=== PATIENT | female | born 1980 | race Caucasian/White ===

== ENCOUNTER → 2016-08-17 | Outpatient (REF) | payer OTHER ==
[~2016-08-17] MED LIST: /ALBU4TAB INH; /MOXI40TA PO; CARA1TAB2 PO; DEXI60CA PO; EXCETAB80 PO; INSULANT SC; INSULIN PUMP; MICR10CA PO; REGL10TA6 PO; SLIDING SCALE SQ; TYLE325T5 PO; VENTAER IN
== END | disposition home or self-care (01) ==
LOC: M SFHCCLAY 14:53
PROVIDERS: ATTEND Family Medicine
DX: R30.0 Dysuria (principal)

== ENCOUNTER → 2016-09-22 | Outpatient (REF) | payer OTHER ==
[2016-09-22 17:18] LABS: MEAN CORPUSCULAR HEMOGLOBIN 29.1 pg (27.0-33.0); MEAN CORPUSCULAR HGB CONC 32.2 g/dl (32.0-36.5); MEAN CORPUSCULAR VOLUME 90.6 fl (80.0-96.0); RED CELL DISTRIBUTION WIDTH 12.5 % (11.5-14.5); WHITE BLOOD COUNT 10.4 K/mm3 (4.0-10.0)
[2016-09-22 17:57] LABS: EOSINOPHILS 1 % (0-5)
== END ==
LOC: M SFHCCLAY 11:46
PROVIDERS: ATTEND Family Medicine
DX: D72.829 Elevated white blood cell count, unspecified (principal)

== ENCOUNTER → 2017-01-30 | Outpatient (REF) | payer OTHER ==
[2017-01-30 18:46] LABS: ANION GAP 6 MEQ/L (8-16); BLOOD UREA NITROGEN 10 MG/DL (7-18); CARBON DIOXIDE LEVEL 29 MEQ/L (21-32); CHLORIDE LEVEL 103 MEQ/L (98-107); CREATININE FOR GFR 0.94 MG/DL (0.55-1.02); FERRITIN 23 NG/ML (8-252); FREE T4 0.87 NG/DL (0.76-1.46); GLOMERULAR FILTRATION RATE > 60.0 (>60); GLUCOSE, FASTING 231 MG/DL (70-105); POTASSIUM SERUM 4.4 MEQ/L (3.5-5.1); SODIUM LEVEL 138 MEQ/L (136-145)
[2017-01-30 19:47] LABS: MEAN CORPUSCULAR HEMOGLOBIN 30.8 pg (27.0-33.0); MEAN CORPUSCULAR HGB CONC 32.4 g/dl (32.0-36.5); MEAN CORPUSCULAR VOLUME 95.1 fl (80.0-96.0); RED CELL DISTRIBUTION WIDTH 13.3 % (11.5-14.5)
[2017-01-30 22:02] LABS: EOSINOPHILS 2 % (0-5)
== END ==
LOC: M SFHCCLAY 11:56
PROVIDERS: ATTEND Family Medicine
DX: D72.829 Elevated white blood cell count, unspecified (principal); R23.2 Flushing

== ENCOUNTER → 2017-05-31 | Outpatient (REF) | payer OTHER ==
[2017-05-31 17:42] LABS: ALBUMIN 3.7 GM/DL (3.2-5.2); ALBUMIN/GLOBULIN RATIO 1.19 (1.00-1.93); ALKALINE PHOSPHATASE 75 U/L (45-117); ALT/SGPT 15 U/L (12-78); ANION GAP 7 MEQ/L (8-16); AST/SGOT 13 U/L (7-37); BILIRUBIN,TOTAL 0.4 MG/DL (0.2-1.0); BLOOD UREA NITROGEN 8 MG/DL (7-18); CALCIUM LEVEL 8.9 MG/DL (8.5-10.1); CARBON DIOXIDE LEVEL 27 MEQ/L (21-32); CHLORIDE LEVEL 104 MEQ/L (98-107); CREATININE FOR GFR 0.88 MG/DL (0.55-1.02); GLOMERULAR FILTRATION RATE > 60.0 (>60); GLUCOSE, FASTING 237 MG/DL (70-105); MAGNESIUM LEVEL 1.8 MG/DL (1.8-2.4); POTASSIUM SERUM 4.5 MEQ/L (3.5-5.1); SODIUM LEVEL 138 MEQ/L (136-145); TOTAL PROTEIN 6.8 GM/DL (6.4-8.2)
[2017-05-31 18:30] LABS: BASO % 0.4 % (0.0-1.0); EOS # 0.1 10^3/uL (0.0-0.50); EOS % 0.5 % (0.0-3.0); IMMATURE GRANULOCYTE % 0.4 % (0-0); LYMPH # 2.9 10^3/uL (1.5-4.5); LYMPH % 25.9 % (24.0-44.0); MEAN CORPUSCULAR HEMOGLOBIN 29.1 pg (27.0-33.0); MEAN CORPUSCULAR HGB CONC 32.5 g/dl (32.0-36.5); MEAN CORPUSCULAR VOLUME 89.6 fl (80.0-96.0); MONO # 0.9 10^3/uL (0.0-0.8); MONO % 8.4 % (0.0-5.0); NEUTROPHILS # 7.2 10^3/uL (1.8-7.7); NEUTROPHILS % 64.4 % (36.0-66.0); PLATELET COUNT, AUTOMATED 245 10^3/uL (150-450); RED CELL DISTRIBUTION WIDTH 12.8 % (11.5-14.5); WHITE BLOOD COUNT 11.2 10^3/uL (4.0-10.0)
== END ==
LOC: M SFHCCLAY 10:49
PROVIDERS: ATTEND Nurse Practitioner Family
DX: E87.6 Hypokalemia (principal); E83.42 Hypomagnesemia; R11.10 Vomiting, unspecified; K31.84 Gastroparesis

== ENCOUNTER 2018-01-01 09:28 | Observation (INO) | payer OTHER ==
[2018-01-01 10:19] LABS: BASO # 0.1 10^3/uL (0.0-0.2); BASO % 0.4 % (0.0-1.0); EOS # 0.3 10^3/uL (0.0-0.50); EOS % 1.9 % (0.0-3.0); HEMATOCRIT 45.8 % (36.0-47.0); HEMOGLOBIN 15.6 g/dl (12.0-15.5); IMMATURE GRANULOCYTE % 0.6 % (0-3.0); LYMPH # 2.8 10^3/uL (1.5-4.5); LYMPH % 15.9 % (24.0-44.0); MEAN CORPUSCULAR HEMOGLOBIN 29.4 pg (27.0-33.0); MEAN CORPUSCULAR HGB CONC 34.1 g/dl (32.0-36.5); MEAN CORPUSCULAR VOLUME 86.4 fl (80.0-96.0); MONO # 1.3 10^3/uL (0.0-0.8); MONO % 7.4 % (0.0-5.0); NEUTROPHILS # 13.1 10^3/uL (1.8-7.7); NEUTROPHILS % 73.8 % (36.0-66.0); PLATELET COUNT, AUTOMATED 300 10^3/uL (150-450); RED CELL DISTRIBUTION WIDTH 12.7 % (11.5-14.5); WHITE BLOOD COUNT 17.8 10^3/uL (4.0-10.0)
[2018-01-01 10:30] LABS: ALBUMIN 3.6 GM/DL (3.2-5.2); ALKALINE PHOSPHATASE 79 U/L (45-117); ALT/SGPT 26 U/L (12-78); ANION GAP 11 MEQ/L (8-16); AST/SGOT 26 U/L (7-37); BILIRUBIN,DIRECT < 0.1 MG/DL (0.0-0.2); BILIRUBIN,TOTAL 0.5 MG/DL (0.2-1.0); BLOOD UREA NITROGEN 10 MG/DL (7-18); CALCIUM LEVEL 9.1 MG/DL (8.5-10.1); CARBON DIOXIDE LEVEL 24 MEQ/L (21-32); CHLORIDE LEVEL 101 MEQ/L (98-107); CREATININE FOR GFR 1.25 MG/DL (0.55-1.30); GLOMERULAR FILTRATION RATE 51.3 (>60); GLUCOSE, FASTING 302 MG/DL (70-100); LIPASE 88 U/L (73-393); POTASSIUM SERUM 3.6 MEQ/L (3.5-5.1); SODIUM LEVEL 136 MEQ/L (136-145); TOTAL PROTEIN 7.6 GM/DL (6.4-8.2)
[2018-01-01] MEDS ORDERED: ONDANSETRON 4MG/2ML VIAL (J2405) As Ordered (10:37)
[2018-01-01] MEDS: ONDANSETRON 4MG/2ML VIAL (J2405) IV (10:46)
[2018-01-01] MEDS ORDERED: ISOVUE-370 76% 100ML VIAL (Q9967) As Ordered (11:38)
[2018-01-01 11:44] LABS: CONTROL LINE HCG INT CTR LINE PRESENT; HCG, SERUM QUALITATIVE NEGATIVE (NEGATIVE)
[2018-01-01 11:47] LABS: MAGNESIUM LEVEL 1.8 MG/DL (1.8-2.4)
[2018-01-01] MEDS: PROMETHAZINE INJ 25 MG/ML VIAL (J2550) IM (12:04)
[2018-01-01] MEDS: NS 1,000 ML IV (12:04)
[2018-01-01 14:56] LABS: ESTIMATED AVERAGE GLUCOSE 166 MG/DL (60-110); HEMOGLOBIN A1c 7.4 %
[2018-01-01] MEDS ORDERED: DEXTROSE 50% 50 ML SYRINGE IV (15:30)
[2018-01-01] MEDS ORDERED: GLUCAGON FOR INJ 1 MG VIAL (J1610) SC (15:30)
[2018-01-01] MEDS ORDERED: GLUCOSE 4 GM CHEW TABLET PO (15:30)
[2018-01-01] MEDS: LR 1,000 ML IV (16:14)
[2018-01-01 16:27] LABS: KETONE, URINE AUTO RFX NEGATIVE (NEGATIVE); LEUKOCYTE ESTERASE UR AUTO RFX TRACE (NEGATIVE); NITRITE, URINE AUTO RFX NEGATIVE (NEGATIVE); RBC, URINE AUTO RFX 2 /HPF (0-3); SQUAM EPITHELIAL CELL UR AURFX 2 /HPF (0-6); WBC, URINE AUTO RFX 1 /HPF (0-3)
[2018-01-01 16:29] LABS: SPECIFIC GRAVITY UR AUTO RFX 1.064 (1.002-1.035)
[2018-01-01] MEDS: HumaLOG INSULIN (NovoLOG) PER UNIT SC (17:21)
[2018-01-01] MEDS: cefTRIAXone SOD 1 GM in D5W MINI-BAG PLUS 50 ML IV (18:00)
[2018-01-01 18:08] LABS: BEDSIDE GLUCOSE 63 MG/DL (70-105)
[2018-01-01] MEDS: METOCLOPRAMIDE INJ 10MG/2ML VIAL (J2765) IV (19:20)
[2018-01-01] MEDS ORDERED: ALBUTEROL 90 MCG/ACT 8GM HFA INHALER INH (19:45)
[2018-01-01] MEDS: ACETAMINOPHEN 500 MG TAB PO (20:47)
[2018-01-01] MEDS: FAMOTIDINE 20 MG TAB PO (20:54)
[2018-01-01] MEDS: LISINOPRIL *2.5 MG* TAB PO (20:54)
[2018-01-01] MEDS: CIPROFLOXACIN 400 MG in APPROPRIATE DILUENT 1 EA IV (20:54)
[2018-01-01] MEDS: busPIRone 10 MG TAB PO (20:55)
[2018-01-01] MEDS: SERTRALINE HCL 50 MG TAB PO (20:55)
[2018-01-01] MEDS: hydroCHLOROthiazide 25 MG TAB PO (20:56)
[2018-01-01] MEDS: metroNIDAZOLE 500 MG in APPROPRIATE DILUENT 1 EA IV (22:12)
[2018-01-01 23:53] LABS: BEDSIDE GLUCOSE 238 MG/DL (70-105)
[2018-01-02] MEDS: LR 1,000 ML IV ×4 (03:25→19:46)
[2018-01-02] MEDS: metroNIDAZOLE 500 MG in APPROPRIATE DILUENT 1 EA IV ×3 (04:54→23:33)
[2018-01-02] MEDS: LISINOPRIL *2.5 MG* TAB PO (08:18)
[2018-01-02] MEDS: FAMOTIDINE 20 MG TAB PO ×2 (08:19→21:42)
[2018-01-02] MEDS: CIPROFLOXACIN 400 MG in APPROPRIATE DILUENT 1 EA IV ×2 (08:19→19:46)
[2018-01-02] MEDS: SERTRALINE HCL 50 MG TAB PO (08:19)
[2018-01-02] MEDS: busPIRone 10 MG TAB PO (08:19)
[2018-01-02] MEDS: ENOXAPARIN 40 MG/0.4 ML SYRINGE (J1650) SC (08:19)
[2018-01-02 09:35] LABS: ESTIMATED AVERAGE GLUCOSE 169 MG/DL (60-110); HEMOGLOBIN A1c 7.5 %
[2018-01-02] MEDS: hydroCHLOROthiazide 25 MG TAB PO (09:56)
[2018-01-02] MEDS: ONDANSETRON 4MG/2ML VIAL (J2405) IV (19:45)
[2018-01-02 20:03] LABS: BEDSIDE GLUCOSE 69 MG/DL (70-105)
[2018-01-03] MEDS: metroNIDAZOLE 500 MG in APPROPRIATE DILUENT 1 EA IV (05:13)
[2018-01-03 06:44] LABS: MEAN CORPUSCULAR HEMOGLOBIN 30.1 pg (27.0-33.0); MEAN CORPUSCULAR HGB CONC 34.6 g/dl (32.0-36.5); MEAN CORPUSCULAR VOLUME 86.9 fl (80.0-96.0); PLATELET COUNT, AUTOMATED 253 10^3/uL (150-450); RED BLOOD COUNT 4.49 10^6/uL (4.00-5.40); RED CELL DISTRIBUTION WIDTH 12.7 % (11.5-14.5); WHITE BLOOD COUNT 11.4 10^3/uL (4.0-10.0)
[2018-01-03 06:48] LABS: HEMOGLOBIN 13.5 g/dl (12.0-15.5)
[2018-01-03 07:18] LABS: ALBUMIN 2.9 GM/DL (3.2-5.2); ANION GAP 9 MEQ/L (8-16); BLOOD UREA NITROGEN 8 MG/DL (7-18); CALCIUM LEVEL 8.1 MG/DL (8.5-10.1); CARBON DIOXIDE LEVEL 25 MEQ/L (21-32); CHLORIDE LEVEL 108 MEQ/L (98-107); CREATININE FOR GFR 0.86 MG/DL (0.55-1.30); GLOMERULAR FILTRATION RATE > 60.0 (>60); GLUCOSE, FASTING 52 MG/DL (70-100); PHOSPHORUS LEVEL 3.4 MG/DL (2.5-4.9); POTASSIUM SERUM 3.2 MEQ/L (3.5-5.1); SODIUM LEVEL 142 MEQ/L (136-145)
[2018-01-03] MEDS: LR 1,000 ML IV (07:19)
[2018-01-03] MEDS: ACETAMINOPHEN 500 MG TAB PO (08:24)
[2018-01-03] MEDS: CIPROFLOXACIN 400 MG in APPROPRIATE DILUENT 1 EA IV (08:24)
[2018-01-03] MEDS: LISINOPRIL *2.5 MG* TAB PO (08:24)
[2018-01-03] MEDS: busPIRone 10 MG TAB PO (08:25)
[2018-01-03] MEDS: hydroCHLOROthiazide 25 MG TAB PO ×2 (08:25→08:31)
[2018-01-03] MEDS: FAMOTIDINE 20 MG TAB PO (08:25)
[2018-01-03] MEDS: SERTRALINE HCL 50 MG TAB PO (08:25)
[2018-01-03] MEDS: POTASSIUM CHLORIDE 10 MEQ SR TABLET PO (08:25)
[2018-01-03] MEDS: ENOXAPARIN 40 MG/0.4 ML SYRINGE (J1650) SC (08:26)
[2018-01-03 08:42] LABS: BEDSIDE GLUCOSE 113 MG/DL (70-105)
== END 2018-01-03 12:09 | disposition home or self-care (01) ==
LOC: M MS4PR 01-03 00:28 → M ED 09:28 → M ED INP 15:19
DX: R10.32 Left lower quadrant pain (principal); K52.89 Other specified noninfective gastroenteritis and colitis; G43.A1 Cyclical vomiting, in migraine, intractable; K31.84 Gastroparesis; T40.7X1A Poisoning by cannabis (derivatives), accidental (unintentional), initial encounter; E10.9 Type 1 diabetes mellitus without complications; Z79.4 Long term (current) use of insulin; Z96.41 Presence of insulin pump (external) (internal); K21.9 Gastro-esophageal reflux disease without esophagitis; D72.829 Elevated white blood cell count, unspecified; I10 Essential (primary) hypertension; J45.909 Unspecified asthma, uncomplicated; Z79.899 Other long term (current) drug therapy; Z88.0 Allergy status to penicillin; Z88.2 Allergy status to sulfonamides; Z91.040 Latex allergy status; Z88.5 Allergy status to narcotic agent
CPT/HCPCS: J2405

== ENCOUNTER 2018-01-11 12:49 | Day surgery (SDC) | payer OTHER ==
[2018-01-11 13:18] LABS: BEDSIDE GLUCOSE 102 MG/DL (70-105)
[2018-01-11] MEDS ORDERED: ONDANSETRON 4MG/2ML VIAL (J2405) As Ordered (13:39)
[2018-01-11] MEDS: ONDANSETRON 4MG/2ML VIAL (J2405) IV (13:44)
[2018-01-11] MEDS ORDERED: fentaNYL 100 MCG/2 ML INJECTION (J3010) As Ordered (14:14)
[2018-01-11] MEDS ORDERED: PROPOFOL 200 MG/20 ML VIAL As Ordered (14:27)
[2018-01-11] MEDS ORDERED: LIDOCAINE 2% INJ 100 MG/5 ML SDV (FOR ANES.) As Ordered (14:27)
[2018-01-11] MEDS: NS 1,000 ML IV (14:48)
== END 2018-01-11 15:13 | disposition home or self-care (01) ==
LOC: M OPP 12:49
DX: R11.2 Nausea with vomiting, unspecified (principal); R10.13 Epigastric pain; R12 Heartburn; K31.84 Gastroparesis; E10.9 Type 1 diabetes mellitus without complications; Z96.41 Presence of insulin pump (external) (internal); K21.9 Gastro-esophageal reflux disease without esophagitis; M08.00 Unspecified juvenile rheumatoid arthritis of unspecified site; R51 Headache; J45.909 Unspecified asthma, uncomplicated; F12.10 Cannabis abuse, uncomplicated; F32.9 Major depressive disorder, single episode, unspecified; F41.9 Anxiety disorder, unspecified; Z88.1 Allergy status to other antibiotic agents; Z91.040 Latex allergy status; Z88.5 Allergy status to narcotic agent; Z88.2 Allergy status to sulfonamides; Z88.0 Allergy status to penicillin; Z79.899 Other long term (current) drug therapy
CPT/HCPCS: 43239

== ENCOUNTER → 2018-09-12 | Outpatient (CLI) | payer OTHER ==
[~2018-09-12] MED LIST changes: +ANAS0.12 PO; +BUSP10TA PO; +CIPR-249 PO; +DEXI60CA2 PO; +FLAG250T PO; +FLAG500T PO; +HYDR25TAB PO; +INSUH10VL SC; +LISI2.5T5 PO; +MAGN250T11 PO; +ONDA4TAB5 PO; +RANI150T PO; +REGL5TAB2 PO; +SERT-155 PO; +SUCR1TAB56 PO; +VENTAER INH; +[UNRECOGNIZED DRUG - CODE] PO
== END ==
LOC: M RAD 10:01
PROVIDERS: ATTEND Nurse Practitioner Family
DX: M54.2 Cervicalgia (principal); M54.81 Occipital neuralgia; Z53.9 Procedure and treatment not carried out, unspecified reason

== ENCOUNTER → 2020-03-19 | Outpatient (CLI) | payer OTHER ==
[~2020-03-19] MED LIST changes: -/ALBU4TAB INH; -/MOXI40TA PO; +ALBU1TAB2 INH; +AVEL1TAB2 PO; +GASTROGRAFIN SOLUTION 30ML (Q9963) As Ordered ONE; +ISOVUE-370 76% 100ML VIAL As Ordered ONE; +LISI2.5T2 PO; -LISI2.5T5 PO; +ONDA-83 PO; -ONDA4TAB5 PO; -SERT-155 PO; +SERT50TA29 PO
--- NOTE | 2020-04-14 13:43 | REP ---
CONTRAST ENHANCED CT ABDOMEN AND PELVIS CLINICAL: Abdominal pain and history of abnormal finding on digestive tract imaging. TECHNIQUE: Axial contrast enhanced images from the lung bases to the pubic symphysis using oral (per protocol) and 100 mL Isovue-370 intravenous contrast material with coronal and sagittal reformations. COMPARISON: 01/01/2018. FINDINGS: Lung bases are clear. Visualized portions of the heart and pericardium normal. Liver, spleen, pancreas, bilateral adrenal glands, and kidneys are normal. Evidence for prior cholecystectomy noted. The enteric system is without obstruction or acute inflammatory process. Pelvis demonstrates normal bladder and age appropriate uterus/adnexa. No ascites. No free air. No adenopathy. Surrounding musculoskeletal structures appear intact. Abdominal aorta without aneurysm or dissection. IMPRESSION: Evidence for prior cholecystectomy. No acute abdominopelvic pathology appreciated. MTDD
== END ==
LOC: M RAD 14:24
PROVIDERS: ATTEND Physician Assistant Medical
DX: R93.3 Abnormal findings on diagnostic imaging of other parts of digestive tract (principal); R19.4 Change in bowel habit; Z90.49 Acquired absence of other specified parts of digestive tract
CPT/HCPCS: 74177; Q9963; Q9967

== ENCOUNTER → 2020-05-01 | Outpatient (CLI) | payer OTHER ==
[~2020-05-01] MED LIST changes: -GASTROGRAFIN SOLUTION 30ML (Q9963) As Ordered ONE; -ISOVUE-370 76% 100ML VIAL As Ordered ONE
--- NOTE | 2020-05-01 10:30 | REP ---
INDICATION: INCONTINENCE, LUMBAGO AND HIP PAIN RT COMPARISON: Comparison is made with images from CT scanning of the abdomen and pelvis March 19, 2020.. TECHNIQUE: Coronal T1 and fat-sat T2 images of both hips are acquired. In addition at smaller [id number] high-resolution T2 fat sat images of the right hip were acquired in all 3 planes. FINDINGS: Cortical and medullary bone signal intensity are normal in the proximal femurs bilaterally. There is no evidence to suggest avascular necrosis. There is no significant hip joint effusion on either side. T2 weighted scans show no evidence of peritrochanteric or other periarticular bursal fluid collection. There is no evidence of uterine or ovarian pathology. No pelvic mass or adenopathy is seen. Urinary bladder haq are smooth. Cortical and medullary bone signal intensity are normal in the visualized bony pelvic ring. There is no evidence of labral cartilage tear. Head neck junction morphology is normal in the right proximal femur. No subcortical cyst formation is seen on either side of the right hip articulation. Ligamentum teres appears intact. Periarticular soft tissues are unremarkable. IMPRESSION: Negative MRI study of the right hip. <Electronically signed by Valentín Alanis > 05/01/20 [id number]
--- NOTE | 2020-05-01 10:46 | REPVR ---
PROCEDURE INFORMATION: Exam: MR Lumbar Spine Without Contrast. Exam date and time: 05/01/2020 10:03 AM Age: 39 years old Clinical indication: Patient HX: Low back pain down into RT hip, nki, urinary retention; Additional info: Incontinence, lumbago and hip pain RT TECHNIQUE: Imaging protocol: Multiplanar magnetic resonance images of the lumbar spine without intravenous contrast. COMPARISON: No relevant prior studies available. FINDINGS: Vertebrae: Vertebral body heights are intact. Alignment is maintained. No pars defect is identified. Spinal cord: The conus is unremarkable in appearance, with its tip at the L1-L2 level. Multilevel findings: There are mild degrees of disc desiccation indicating intervertebral disc degeneration. L1-L2: No significant disc displacement. L2-L3: No significant disc displacement. L3-L4: No significant disc displacement. There is small fluid in the facet joints. L4-L5: Small bulge combining with facet arthrosis to lead to very mild bilateral neural foraminal narrowing without significant spinal stenosis. There is small fluid in the facet joints. L5-S1: Small bulge combining with facet arthrosis to lead to mild to moderate right and mild left neural foraminal narrowing without significant spinal stenosis. Soft tissues: Unremarkable. IMPRESSION: Mild multilevel disc desiccation indicating intervertebral disk degeneration with small disc displacements as described. COMMENTS: If surgery is considered, recommend level confirmation. Electronically signed by: Miki Hampton On 05/01/2020 10:46:33 AM
== END ==
LOC: M RAD 08:40
PROVIDERS: ATTEND Nurse Practitioner Family
DX: R32 Unspecified urinary incontinence (principal); M54.41 Lumbago with sciatica, right side; M51.26 Other intervertebral disc displacement, lumbar region

== ENCOUNTER → 2020-09-10 | Outpatient (CLI) | payer OTHER ==
[~2020-09-10] MED LIST changes: +HYDR-3490 PO; -HYDR25TAB PO
== END ==
LOC: M LABSMTC 11:47
PROVIDERS: ATTEND Family Medicine
DX: Z11.52 Encounter for screening for COVID-19 (principal)
CPT/HCPCS: C9803; U0003

== ENCOUNTER → 2020-09-20 | Outpatient (CLI) | payer OTHER ==
[~2020-09-20] MED LIST changes: +ADME100I SC; +FAMO20TA PO; +GABA-845 PO; +HYDR-643 PO; +LANTINJ4 SC; +LEXA1TAB2 PO; +PROP10TA56 PO
== END ==
LOC: M LABSMTC 09:26
PROVIDERS: ATTEND Anesthesiology
DX: Z01.812 Encounter for preprocedural laboratory examination (principal); Z20.822 Contact with and (suspected) exposure to COVID-19

== ENCOUNTER → 2020-11-08 | Outpatient (CLI) | payer OTHER ==
[~2020-11-08] MED LIST changes: +ATOR1TAB19 PO
== END ==
LOC: M LABSMTC 08:56
PROVIDERS: ATTEND Anesthesiology
DX: Z01.818 Encounter for other preprocedural examination (principal); Z11.52 Encounter for screening for COVID-19

== ENCOUNTER 2020-11-13 12:20 | Day surgery (SDC) | payer OTHER ==
[~2020-11-13] VITALS: Ht 157.5 cm; Wt 78.5 kg
[~2020-11-13 12:20] MED LIST changes: +NS 1,000 ML IV ONE
[2020-11-13] MEDS ORDERED: ONDANSETRON 4MG/2ML VIAL As Ordered ONE (12:49)
[2020-11-13] MEDS ORDERED: ONDANSETRON 4MG/2ML VIAL IV ONE (12:55)
[2020-11-13] MEDS ORDERED: LIDOCAINE 2% 100MG/5ML SDV (FOR ANES.) As Ordered ONE (14:06)
[2020-11-13] MEDS ORDERED: propofoL 200 MG/20 ML VIAL As Ordered ONE (14:06)
[2020-11-13] MEDS ORDERED: fentaNYL 100 MCG/2 ML INJECTION (J3010) As Ordered ONE (14:06)
--- NOTE | 2020-11-13 14:16 | ROOR ---
Patient Name: Nataliya Galindo Procedure Date: 11/13/2020 1:55 PM Date of : 1980 Age: 40 Room: [facility] Gender: Female Note Status: Finalized Procedure: Upper GI endoscopy Indications: Dyspepsia, Heartburn, Gastroparesis, Nausea with vomiting Providers: Pablo MAYFIELD MD Referring MD: Shanna BALDWIN NP Requesting Provider: Medicines: Monitored Anesthesia Care Complications: No immediate complications. Procedure: Pre-Anesthesia Assessment: - The heart rate, respiratory rate, oxygen saturations, blood pressure, adequacy of pulmonary ventilation, and response to care were monitored throughout the procedure. The Endoscope was introduced through the mouth, and advanced to the third part of duodenum. The upper GI endoscopy was accomplished without difficulty. The patient tolerated the procedure well. Findings: A few 5 to 8 mm semi-sessile polyps were found in the gastric body. One larger 8-9 mm polyp was slightly hemorrhagic appearing. The polyp was removed with a cold snare. Resection and retrieval were complete. The exam of the stomach was otherwise normal. The examined esophagus was normal. The examined duodenum was normal. Impression: - A few gastric polyps. Resected and retrieved. - The stomach is otherwise normal - Normal esophagus. - Normal examined duodenum. Recommendation: - Continue present medications. - Observe patient's clinical course. Procedure Code(s): --- Professional --- 27553, Esophagogastroduodenoscopy, flexible, transoral; with removal of tumor(s), polyp(s), or other lesion(s) by snare technique Diagnosis Code(s): --- Professional --- R11.2, Nausea with vomiting, unspecified K31.84, Gastroparesis R12, Heartburn R10.13, Epigastric pain K31.7, Polyp of stomach and duodenum CPT copyright 2019 [employer]. All rights reserved. The codes documented in this report are preliminary and upon insurance coder review may be revised to meet current compliance requirements. Pablo Mayfield MD Pablo MAYFIELD MD 11/13/2020 2:16:33 PM Electronically signed by Pablo MAYFIELD MD Number of Addenda: 0 Note Initiated On: 11/13/2020 1:55 PM Estimated Blood Loss: Estimated blood loss: none.
[2020-11-13 14:39] VITALS: BP 149/72
== END 2020-11-13 14:43 | disposition home or self-care (01) ==
LOC: M OPP 12:20
PROVIDERS: ATTEND Internal Medicine Gastroenterology
DX: K31.2 Hourglass stricture and stenosis of stomach (principal); R12 Heartburn; K31.84 Gastroparesis; R11.2 Nausea with vomiting, unspecified; E10.9 Type 1 diabetes mellitus without complications; Z79.4 Long term (current) use of insulin; Z79.899 Other long term (current) drug therapy; Z88.0 Allergy status to penicillin; Z88.1 Allergy status to other antibiotic agents; Z88.2 Allergy status to sulfonamides; Z88.5 Allergy status to narcotic agent; Z91.040 Latex allergy status; Z87.891 Personal history of nicotine dependence
CPT/HCPCS: 43251; 88305; J2405; J3010

== ENCOUNTER 2022-04-02 16:45 | Emergency (ER) | payer OTHER ==
[~2022-04-02 16:45] MED LIST changes: +GABA-283 PO; -GABA-845 PO; -LISI2.5T2 PO; +LISI2.5T9 PO; -NS 1,000 ML IV ONE
[2022-04-02] MEDS ORDERED: METOCLOPRAMIDE INJ 10MG/2ML VIAL (J2765 PER 1) IV ONE (17:00)
[2022-04-02] MEDS ORDERED: NS 1,000 ML IV ONE (17:10)
[2022-04-02] MEDS ORDERED: KETOROLAC 30 MG/ML 1ML VIAL IV ONE (17:10)
[2022-04-02] MEDS ORDERED: PANTOPRAZOLE 40MG VIAL IV ONE (17:10)
[2022-04-02 17:49] LABS: BASO # 0.1 10^3/uL (0.0-0.2); BASO % 0.5 % (0.0-1.0); EOS % 0.3 % (0.0-3.0); HEMATOCRIT 43.1 % (36.0-47.0); HEMOGLOBIN 14.9 g/dl (12.0-15.5); LYMPH # 2.9 10^3/uL (1.5-5.0); LYMPH % 18.5 % (24.0-44.0); MEAN CORPUSCULAR HEMOGLOBIN 29.4 pg (27.0-33.0); MEAN CORPUSCULAR HGB CONC 34.6 g/dl (32.0-36.5); MEAN CORPUSCULAR VOLUME 85.2 fl (80.0-96.0); MONO # 1.2 10^3/uL (0.0-0.8); MONO % 7.3 % (2.0-8.0); NEUTROPHILS # 11.6 10^3/uL (1.5-8.5); PLATELET COUNT, AUTOMATED 335 10^3/uL (150-450); RED BLOOD COUNT 5.06 10^6/uL (4.00-5.40); WHITE BLOOD COUNT 15.9 10^3/uL (4.0-10.0)
[2022-04-02] MEDS ORDERED: ISOVUE-370 76% 100ML VIAL As Ordered ONE (17:56)
[2022-04-02 18:09] LABS: PROTHROMBIN TIME 13.6 SECONDS (12.7-14.5)
[2022-04-02 18:10] LABS: PARTIAL THROMBOPLASTIN TIME 27.6 SECONDS (25.9-37.0)
[2022-04-02 18:22] LABS: ACETONE/KETONE 31.35 MG/DL (<2.81); ALBUMIN 3.8 GM/DL (3.2-5.2); BILIRUBIN,DIRECT 0.3 MG/DL (0.0-0.2); MAGNESIUM LEVEL 1.5 MG/DL (1.8-2.4); TOTAL PROTEIN 7.1 GM/DL (6.4-8.2)
[2022-04-02 21:57] LABS: BLOOD UREA NITROGEN 13 MG/DL (7-18); CALCIUM LEVEL 8.5 MG/DL (8.5-10.1); CARBON DIOXIDE LEVEL 20 MEQ/L (21-32); CHLORIDE LEVEL 107 MEQ/L (98-107); CREATININE FOR GFR 0.88 MG/DL (0.55-1.30); GLOMERULAR FILTRATION RATE > 60.0 (>58); GLUCOSE, FASTING 266 MG/DL (70-100); POTASSIUM SERUM 4.3 MEQ/L (3.5-5.1); SODIUM LEVEL 139 MEQ/L (136-145)
[2022-04-02 22:05] VITALS: BP 117/61
[2022-04-02] MEDS ORDERED: REGL10TA6 PO (22:16)
[2022-04-03] MEDS ORDERED: LISI10TA22 PO (03:02)
[2022-04-03] MEDS ORDERED: BASA100I INJ (03:05)
[2022-04-03] MEDS ORDERED: CLIN150C17 PO (03:05)
[2022-04-03] MEDS ORDERED: MED REC COMMENT (03:08)
== END 2022-04-02 22:32 | disposition home or self-care (01) ==
LOC: M ED 16:45 → EDBD 16:45 → M ED 22:32
DX: R11.2 Nausea with vomiting, unspecified (principal); E10.9 Type 1 diabetes mellitus without complications; E78.5 Hyperlipidemia, unspecified; K31.84 Gastroparesis; K21.9 Gastro-esophageal reflux disease without esophagitis; Z88.1 Allergy status to other antibiotic agents; Z88.2 Allergy status to sulfonamides; Z88.5 Allergy status to narcotic agent; Z91.040 Latex allergy status
CPT/HCPCS: 36600; 74177; 80047; 80048; 80076; 82010; 82803; 83605; 83690; 83735; 83930; 84702; 85025; 85610; 85730; 86850; 86900; 86901; 87486; 87581; 87633; 87798; 96374; 96375; 99284; C9113; J1885; J2765; Q9967

== ENCOUNTER 2022-04-03 00:14 | Inpatient (IN) | payer OTHER ==
[2022-04-03] VITALS (9 sets, daily range): BP systolic 100–150; BP diastolic 52–64
[~2022-04-03] VITALS: Ht 154.9 cm; Wt 77.5 kg
[2022-04-03] MEDS ORDERED: NS 1,000 ML IV ONE (00:20)
[2022-04-03 01:16] LABS: VENOUS BASE EXCESS -9.4 (-2.0-2.0); VENOUS PARTIAL PRESSURE CO2 33.9 mmHg (38.0-50.0); VENOUS PARTIAL PRESSURE O2 49.9 mmHg (30.0-50.0); VENOUS PH 7.293 UNITS (7.330-7.430); VENOUS STANDARD HCO3 16.7 MEQ/L; VENOUS TOTAL CO2 17.1 MEQ/L (24.0-28.0)
[2022-04-03 01:19] LABS: BASO # 0.1 10^3/uL (0.0-0.2); BASO % 0.3 % (0.0-1.0); HEMATOCRIT 40.9 % (36.0-47.0); HEMOGLOBIN 13.6 g/dl (12.0-15.5); LYMPH # 1.9 10^3/uL (1.5-5.0); LYMPH % 6.7 % (24.0-44.0); MEAN CORPUSCULAR HEMOGLOBIN 29.7 pg (27.0-33.0); MEAN CORPUSCULAR HGB CONC 33.3 g/dl (32.0-36.5); MEAN CORPUSCULAR VOLUME 89.3 fl (80.0-96.0); MONO # 0.7 10^3/uL (0.0-0.8); MONO % 2.4 % (2.0-8.0); NEUTROPHILS # 25.1 10^3/uL (1.5-8.5); PLATELET COUNT, AUTOMATED 336 10^3/uL (150-450); RED BLOOD COUNT 4.58 10^6/uL (4.00-5.40); WHITE BLOOD COUNT 27.9 10^3/uL (4.0-10.0)
[2022-04-03 01:33] LABS: RSV AMPLIFICATION NEGATIVE (NEGATIVE)
[2022-04-03 01:41] LABS: HEMOGLOBIN A1c 7.7 %
[2022-04-03 01:51] LABS: AMPHETAMINES LEVEL URINE POSITIVE (NEGATIVE); BARBITURATES URINE NEGATIVE (NEGATIVE); BENZODIAZEPINES URINE NEGATIVE (NEGATIVE); CANNABINOIDS URINE POSITIVE (NEGATIVE); COCAINE METABOLITE URINE NEGATIVE (NEGATIVE); METHADONE URINE NEGATIVE (NEGATIVE); OPIATES URINE NEGATIVE (NEGATIVE); PHENCYCLIDINE URINE NEGATIVE (NEGATIVE)
[2022-04-03 01:53] LABS: OSMOLALITY SERUM 313 MOSM/KG (275-295)
[2022-04-03] MEDS ORDERED: METAL LOCK LOOP XX ONE (01:58)
[2022-04-03 02:00] LABS: CK-MB VALUE MASS 3.5 NG/ML (<3.6); MB/CK RELATIVE INDEX 4.02 (< OR =4)
[2022-04-03] MEDS ORDERED: HALOPERIDOL 5MG/ML VIAL (J1630 PER 1) IV ONE (02:05)
[2022-04-03] MEDS ORDERED: HumuLIN R (REGULAR) INSULIN (NovoLIN R) **100U/ML** PER UNIT IV ONE (02:05)
[2022-04-03 02:12] LABS: ACETONE/KETONE > 46.00 MG/DL (<2.81); ALBUMIN 3.7 GM/DL (3.2-5.2); ALT/SGPT 11 U/L (12-78); BILIRUBIN,DIRECT 0.4 MG/DL (0.0-0.2); BILIRUBIN,TOTAL 0.9 MG/DL (0.2-1.0); BLOOD UREA NITROGEN 15 MG/DL (7-18); CALCIUM LEVEL 9.1 MG/DL (8.5-10.1); CARBON DIOXIDE LEVEL 14 MEQ/L (21-32); CHLORIDE LEVEL 103 MEQ/L (98-107); CREATININE FOR GFR 1.12 MG/DL (0.55-1.30); ETHYL ALCOHOL (ETHANOL) < 0.003 % (0.000-0.010); GLOMERULAR FILTRATION RATE 57.1 (>58); GLUCOSE, FASTING 452 MG/DL (70-100); LIPASE 49 U/L (73-393); POTASSIUM SERUM 4.5 MEQ/L (3.5-5.1); SODIUM LEVEL 137 MEQ/L (136-145); TOTAL PROTEIN 6.9 GM/DL (6.4-8.2)
[2022-04-03] MEDS ORDERED: LISI10TA22 PO (03:02)
[2022-04-03] MEDS ORDERED: BASA100I INJ (03:05)
[2022-04-03] MEDS ORDERED: CLIN150C17 PO (03:05)
[2022-04-03] MEDS ORDERED: MED REC COMMENT (03:08)
[2022-04-03] MEDS ORDERED: HOME MED LIST COMPLETE! XX SCH (03:10)
[2022-04-03] MEDS ORDERED: INSULIN REGULAR IN 0.9 % NACL 100 UNIT in IV 1 EA IV SCH ×2 (03:30)
[2022-04-03] MEDS ORDERED: ACETAMINOPHEN TAB 650MG DOSE (2X325MG) PO PRN (03:30)
[2022-04-03] MEDS ORDERED: MOM 30ML SUSPENSION UDC PO PRN (03:30)
[2022-04-03] MEDS: KCL 20MEQ in NS 1000ML 1,000 ML IV SCH ×2 (05:53→08:30)
[2022-04-03] MEDS: INSULIN IV RATE CHANGE DOCUMENTATION ML/HR XX SCH ×2 (05:56→08:12)
[2022-04-03] MEDS ORDERED: HEPARIN SOD (PORCINE) 5000UNITS/ML 1ML VIAL/SYRINGE SC SCH (06:00)
[2022-04-03 06:37] LABS: OSMOLALITY SERUM 302 MOSM/KG (275-295)
[2022-04-03 06:49] LABS: BLOOD UREA NITROGEN 13 MG/DL (7-18); CALCIUM LEVEL 8.4 MG/DL (8.5-10.1); CARBON DIOXIDE LEVEL 14 MEQ/L (21-32); CHLORIDE LEVEL 111 MEQ/L (98-107); CREATININE FOR GFR 0.98 MG/DL (0.55-1.30); GLOMERULAR FILTRATION RATE > 60.0 (>58); GLUCOSE, FASTING 298 MG/DL (70-100); PHOSPHORUS LEVEL 2.3 MG/DL (2.5-4.9); POTASSIUM SERUM 3.9 MEQ/L (3.5-5.1); SODIUM LEVEL 141 MEQ/L (136-145)
[2022-04-03] MEDS ORDERED: METOCLOPRAMIDE INJ 10MG/2ML VIAL (J2765 PER 1) IV PRN (08:00)
[2022-04-03] MEDS ORDERED: LEVEMIR (INSULIN DETEMIR) 1 UNITS/0.01ML SC ONE (08:00)
[2022-04-03] MEDS: PANTOPRAZOLE 40MG VIAL IV SCH (08:06)
[2022-04-03] MEDS ORDERED: K-PHOS ORIGINAL (POT.ACID PHOSPHATE) 500MG TAB PO ONE (09:00)
[2022-04-03] MEDS ORDERED: amLODIPine 5 MG TAB PO SCH (09:00)
[2022-04-03 09:20] LABS: MAGNESIUM LEVEL 1.9 MG/DL (1.8-2.4)
[2022-04-03 09:51] LABS: VENOUS BASE EXCESS -10.2 (-2.0-2.0); VENOUS HCO3 13.9 MEQ/L (23.0-27.0); VENOUS O2 SATURATION 99.2 % (60.0-80.0); VENOUS PARTIAL PRESSURE CO2 25.9 mmHg (38.0-50.0); VENOUS PARTIAL PRESSURE O2 188.6 mmHg (30.0-50.0); VENOUS PH 7.347 UNITS (7.330-7.430); VENOUS STANDARD HCO3 16.4 MEQ/L; VENOUS TOTAL CO2 14.7 MEQ/L (24.0-28.0)
[2022-04-03 10:46] LABS: BLOOD UREA NITROGEN 11 MG/DL (7-18); CALCIUM LEVEL 7.9 MG/DL (8.5-10.1); CARBON DIOXIDE LEVEL 17 MEQ/L (21-32); CHLORIDE LEVEL 113 MEQ/L (98-107); CREATININE FOR GFR 0.83 MG/DL (0.55-1.30); GLOMERULAR FILTRATION RATE > 60.0 (>58); GLUCOSE, FASTING 187 MG/DL (70-100); PHOSPHORUS LEVEL 2.2 MG/DL (2.5-4.9); POTASSIUM SERUM 4.1 MEQ/L (3.5-5.1); SODIUM LEVEL 140 MEQ/L (136-145)
[2022-04-03] MEDS ORDERED: DEXTROSE 50% 50 ML SYRINGE IV PRN (11:10)
[2022-04-03] MEDS ORDERED: GLUCOSE 4GM CHEW TABLET PO PRN (11:10)
[2022-04-03] MEDS ORDERED: GLUCAGON INJ 1MG VIAL SC PRN (11:10)
[2022-04-03] MEDS: INSULIN LISPRO (NovoLOG) PER UNIT SC SCH ×3 (12:10→19:48)
[2022-04-03] MEDS: CLINDAMYCIN 300 MG in IV 1 EA IV SCH ×2 (14:48→21:05)
[2022-04-03 15:54] LABS: VENOUS BASE EXCESS -3.5 (-2.0-2.0); VENOUS HCO3 20.7 MEQ/L (23.0-27.0); VENOUS O2 SATURATION 99.1 % (60.0-80.0); VENOUS PARTIAL PRESSURE CO2 34.6 mmHg (38.0-50.0); VENOUS PARTIAL PRESSURE O2 207.6 mmHg (30.0-50.0); VENOUS PH 7.394 UNITS (7.330-7.430); VENOUS STANDARD HCO3 21.6 MEQ/L; VENOUS TOTAL CO2 21.7 MEQ/L (24.0-28.0)
[2022-04-03 16:26] LABS: BLOOD UREA NITROGEN 10 MG/DL (7-18); CALCIUM LEVEL 8.1 MG/DL (8.5-10.1); CARBON DIOXIDE LEVEL 21 MEQ/L (21-32); CHLORIDE LEVEL 112 MEQ/L (98-107); CREATININE FOR GFR 0.76 MG/DL (0.55-1.30); GLOMERULAR FILTRATION RATE > 60.0 (>58); GLUCOSE, FASTING 141 MG/DL (70-100); PHOSPHORUS LEVEL 2.1 MG/DL (2.5-4.9); POTASSIUM SERUM 3.8 MEQ/L (3.5-5.1); SODIUM LEVEL 139 MEQ/L (136-145)
[2022-04-03] MEDS: METOCLOPRAMIDE 5 MG TAB PO SCH (17:13)
[2022-04-03 20:08] LABS: VENOUS BASE EXCESS -3.8 (-2.0-2.0); VENOUS HCO3 19.7 MEQ/L (23.0-27.0); VENOUS O2 SATURATION 95.3 % (60.0-80.0); VENOUS PARTIAL PRESSURE CO2 31.2 mmHg (38.0-50.0); VENOUS PARTIAL PRESSURE O2 73.6 mmHg (30.0-50.0); VENOUS PH 7.419 UNITS (7.330-7.430); VENOUS STANDARD HCO3 21.3 MEQ/L; VENOUS TOTAL CO2 20.7 MEQ/L (24.0-28.0)
[2022-04-03] MEDS: ENOXAPARIN 30MG/0.3ML SYRINGE (J1650 PER 10MG) SC SCH (20:25)
[2022-04-03 20:57] LABS: OSMOLALITY SERUM 297 MOSM/KG (275-295)
[2022-04-03] MEDS ORDERED: LEVEMIR (INSULIN DETEMIR) 1 UNITS/0.01ML SC SCH (21:00)
[2022-04-03 21:10] LABS: BLOOD UREA NITROGEN 10 MG/DL (7-18); CALCIUM LEVEL 8.5 MG/DL (8.5-10.1); CARBON DIOXIDE LEVEL 19 MEQ/L (21-32); CHLORIDE LEVEL 111 MEQ/L (98-107); CREATININE FOR GFR 0.74 MG/DL (0.55-1.30); GLOMERULAR FILTRATION RATE > 60.0 (>58); GLUCOSE, FASTING 210 MG/DL (70-100); PHOSPHORUS LEVEL 2.6 MG/DL (2.5-4.9); POTASSIUM SERUM 3.9 MEQ/L (3.5-5.1); SODIUM LEVEL 140 MEQ/L (136-145)
[2022-04-04 04:00] VITALS: BP 104/62
[2022-04-04 04:22] LABS: HEMATOCRIT 36.5 % (36.0-47.0); MEAN CORPUSCULAR HEMOGLOBIN 29.8 pg (27.0-33.0); MEAN CORPUSCULAR HGB CONC 32.9 g/dl (32.0-36.5); MEAN CORPUSCULAR VOLUME 90.6 fl (80.0-96.0); PLATELET COUNT, AUTOMATED 261 10^3/uL (150-450); RED BLOOD COUNT 4.03 10^6/uL (4.00-5.40)
[2022-04-04] MEDS: CLINDAMYCIN 300 MG in IV 1 EA IV SCH ×2 (05:32→13:47)
[2022-04-04 05:40] LABS: ALBUMIN 2.9 GM/DL (3.2-5.2); ALT/SGPT 11 U/L (12-78); BILIRUBIN,TOTAL 0.5 MG/DL (0.2-1.0); BLOOD UREA NITROGEN 10 MG/DL (7-18); CALCIUM LEVEL 8.7 MG/DL (8.5-10.1); CARBON DIOXIDE LEVEL 25 MEQ/L (21-32); CHLORIDE LEVEL 112 MEQ/L (98-107); CREATININE FOR GFR 0.62 MG/DL (0.55-1.30); GLOMERULAR FILTRATION RATE > 60.0 (>58); GLUCOSE, FASTING 44 MG/DL (70-100); MAGNESIUM LEVEL 1.9 MG/DL (1.8-2.4); POTASSIUM SERUM 3.4 MEQ/L (3.5-5.1); SODIUM LEVEL 142 MEQ/L (136-145); TOTAL PROTEIN 5.6 GM/DL (6.4-8.2)
[2022-04-04] MEDS: INSULIN LISPRO (NovoLOG) PER UNIT SC SCH ×4 (07:13→21:00)
[2022-04-04 08:00] VITALS: BP 115/65
[2022-04-04] MEDS ORDERED: POTASSIUM CHLORIDE 10MEQ SR TABLET PO ONE (08:00)
[2022-04-04] MEDS: PANTOPRAZOLE 40MG VIAL IV SCH (08:50)
[2022-04-04] MEDS: METOCLOPRAMIDE 5 MG TAB PO SCH ×3 (08:50→18:00)
[2022-04-04 12:00] VITALS: BP 106/66
[2022-04-04 16:00] VITALS: BP 104/62
[2022-04-04 19:30] VITALS: BP 127/77
[2022-04-04] MEDS ORDERED: LEVEMIR (INSULIN DETEMIR) 1 UNITS/0.01ML SC SCH (21:00)
[2022-04-04] MEDS: ENOXAPARIN 30MG/0.3ML SYRINGE (J1650 PER 10MG) SC SCH (21:55)
[2022-04-04] MEDS ORDERED: CLINDAMYCIN 150MG CAPSULE PO ONE (23:00)
[2022-04-04 23:46] VITALS: BP 112/63
[2022-04-05 03:38] VITALS: BP 133/73
[2022-04-05 04:32] LABS: MEAN CORPUSCULAR HEMOGLOBIN 29.1 pg (27.0-33.0); MEAN CORPUSCULAR HGB CONC 32.4 g/dl (32.0-36.5); MEAN CORPUSCULAR VOLUME 89.8 fl (80.0-96.0); PLATELET COUNT, AUTOMATED 250 10^3/uL (150-450); RED BLOOD COUNT 4.12 10^6/uL (4.00-5.40); WHITE BLOOD COUNT 7.9 10^3/uL (4.0-10.0)
[2022-04-05 05:06] LABS: ALBUMIN 2.7 GM/DL (3.2-5.2); ALT/SGPT 12 U/L (12-78); BILIRUBIN,TOTAL 0.4 MG/DL (0.2-1.0); BLOOD UREA NITROGEN 7 MG/DL (7-18); CALCIUM LEVEL 8.6 MG/DL (8.5-10.1); CARBON DIOXIDE LEVEL 26 MEQ/L (21-32); CHLORIDE LEVEL 108 MEQ/L (98-107); CREATININE FOR GFR 0.63 MG/DL (0.55-1.30); GLOMERULAR FILTRATION RATE > 60.0 (>58); GLUCOSE, FASTING 177 MG/DL (70-100); MAGNESIUM LEVEL 1.7 MG/DL (1.8-2.4); POTASSIUM SERUM 3.7 MEQ/L (3.5-5.1); SODIUM LEVEL 138 MEQ/L (136-145); TOTAL PROTEIN 5.5 GM/DL (6.4-8.2)
[2022-04-05] MEDS ORDERED: CLINDAMYCIN 150MG CAPSULE PO SCH (06:00)
[2022-04-05] MEDS: INSULIN LISPRO (NovoLOG) PER UNIT SC SCH ×2 (07:48→12:07)
[2022-04-05] MEDS: METOCLOPRAMIDE 5 MG TAB PO SCH ×2 (07:48→12:07)
[2022-04-05 08:00] VITALS: BP 148/78
[2022-04-05] MEDS: PANTOPRAZOLE 40MG VIAL IV SCH (08:16)
[2022-04-05 08:44] VITALS: BP 148/78
[2022-04-05] MEDS ORDERED: METO5TAB2 PO (11:07)
[2022-04-05] MEDS ORDERED: BASA100I INJ (11:07)
== END 2022-04-05 13:04 | disposition home or self-care (01) | DRG 420 ==
LOC: EDBD 00:14 → M ED 00:14 → M ED INP 03:30 → M ICU 04:12 → M PCU 04-04 15:50
PROVIDERS: ADMIT Family Medicine; ATTEND Family Medicine
DX: E10.10 Type 1 diabetes mellitus with ketoacidosis without coma (principal); N17.9 Acute kidney failure, unspecified; E10.649 Type 1 diabetes mellitus with hypoglycemia without coma; K31.84 Gastroparesis; E10.43 Type 1 diabetes mellitus with diabetic autonomic (poly)neuropathy; F12.10 Cannabis abuse, uncomplicated; F41.1 Generalized anxiety disorder; Z90.49 Acquired absence of other specified parts of digestive tract; Z79.4 Long term (current) use of insulin; Z79.899 Other long term (current) drug therapy; Z88.0 Allergy status to penicillin; Z88.1 Allergy status to other antibiotic agents; Z88.2 Allergy status to sulfonamides; Z88.5 Allergy status to narcotic agent; Z91.040 Latex allergy status; K04.7 Periapical abscess without sinus; I10 Essential (primary) hypertension; E86.0 Dehydration; E66.9 Obesity, unspecified; Z68.33 Body mass index [BMI] 33.0-33.9, adult

== ENCOUNTER 2022-06-18 15:19 | Inpatient (IN) | payer OTHER ==
[~2022-06-18] VITALS: Ht 154.9 cm; Wt 74.6 kg
[~2022-06-18 15:19] MED LIST changes: +BASA100I INJ; +CLIN150C17 PO; +LISI10TA22 PO; +MED REC COMMENT; +METO5TAB2 PO
[2022-06-18] MEDS ORDERED: NS 1,000 ML IV ONE ×3 (15:25→17:25)
[2022-06-18 15:42] LABS: VENOUS BASE EXCESS -7.8 (-2.0-2.0); VENOUS HCO3 16.4 MEQ/L (23.0-27.0); VENOUS O2 SATURATION 89.9 % (60.0-80.0); VENOUS PARTIAL PRESSURE CO2 30.8 mmHg (38.0-50.0); VENOUS PARTIAL PRESSURE O2 57.4 mmHg (30.0-50.0); VENOUS PH 7.345 UNITS (7.330-7.430); VENOUS STANDARD HCO3 18.1 MEQ/L; VENOUS TOTAL CO2 17.4 MEQ/L (24.0-28.0)
[2022-06-18 15:42] LABS: BASO # 0.1 10^3/uL (0.0-0.2); BASO % 0.4 % (0.0-1.0); HEMATOCRIT 46.2 % (36.0-47.0); HEMOGLOBIN 15.3 g/dl (12.0-15.5); LYMPH # 1.8 10^3/uL (1.5-5.0); LYMPH % 8.8 % (24.0-44.0); MEAN CORPUSCULAR HEMOGLOBIN 29.1 pg (27.0-33.0); MEAN CORPUSCULAR HGB CONC 33.1 g/dl (32.0-36.5); MONO # 0.6 10^3/uL (0.0-0.8); MONO % 2.9 % (2.0-8.0); NEUTROPHILS # 17.8 10^3/uL (1.5-8.5); NEUTROPHILS % 87.2 % (36.0-66.0); PLATELET COUNT, AUTOMATED 404 10^3/uL (150-450); RED BLOOD COUNT 5.25 10^6/uL (4.00-5.40); WHITE BLOOD COUNT 20.4 10^3/uL (4.0-10.0)
[2022-06-18] MEDS ORDERED: METOCLOPRAMIDE INJ 10MG/2ML VIAL IV ONE (15:45)
[2022-06-18 16:05] LABS: LIPASE 24 U/L (12-53)
[2022-06-18 16:06] LABS: BILIRUBIN,DIRECT 0.2 MG/DL (<0.4)
[2022-06-18 16:07] LABS: ALBUMIN 3.8 G/DL (3.2-5.2); ALKALINE PHOSPHATASE 109 U/L (46-116); ALT/SGPT 22 U/L (7.0-40); AST/SGOT 27 U/L (<34); BILIRUBIN,TOTAL 0.9 MG/DL (0.3-1.2); BLOOD UREA NITROGEN 18 MG/DL (9-23); CALCIUM LEVEL 9.6 MG/DL (8.5-10.1); CARBON DIOXIDE LEVEL 17 MMOL/L (20-31); CHLORIDE LEVEL 98 MMOL/L (98-107); CREATININE FOR GFR 0.73 MG/DL (0.55-1.30); GLOMERULAR FILTRATION RATE > 60.0 (>58); GLUCOSE, FASTING 287 MG/DL (60-100); POTASSIUM SERUM 3.9 MMOL/L (3.5-5.1); SODIUM LEVEL 135 MMOL/L (136-145); TOTAL PROTEIN 7.2 G/DL (5.7-8.2)
[2022-06-18] MEDS ORDERED: SUCRALFATE SUSP 1GM/10ML UD PO ONE (16:35)
[2022-06-18] MEDS ORDERED: PANTOPRAZOLE 40MG VIAL IV ONE (16:35)
[2022-06-18 16:49] LABS: MAGNESIUM LEVEL 1.6 MG/DL (1.8-2.4)
[2022-06-18 17:04] LABS: HCG, SERUM QUALITATIVE NEGATIVE (NEGATIVE)
[2022-06-18 17:20] LABS: ACETONE/KETONE > 4.50 MMOL/L (0.02-0.27)
[2022-06-18 17:28] LABS: VENOUS BASE EXCESS -4.7 (-2.0-2.0); VENOUS HCO3 19.2 MEQ/L (23.0-27.0); VENOUS O2 SATURATION 95.2 % (60.0-80.0); VENOUS PARTIAL PRESSURE CO2 32.6 mmHg (38.0-50.0); VENOUS PARTIAL PRESSURE O2 73.7 mmHg (30.0-50.0); VENOUS PH 7.387 UNITS (7.330-7.430); VENOUS STANDARD HCO3 20.6 MEQ/L; VENOUS TOTAL CO2 20.2 MEQ/L (24.0-28.0)
[2022-06-18] MEDS ORDERED: DEXTROSE 50% 50 ML SYRINGE IV PRN (17:40)
[2022-06-18] MEDS ORDERED: ONDANSETRON 4MG 2ML VIAL IV PRN (17:40)
[2022-06-18] MEDS ORDERED: GLUCAGON INJ 1MG VIAL SC PRN (17:40)
[2022-06-18] MEDS ORDERED: GLUCOSE 4GM CHEW TABLET PO PRN (17:40)
[2022-06-18] MEDS: LR 1,000 ML IV SCH (17:40)
[2022-06-18] MEDS ORDERED: ACETAMINOPHEN TAB 650MG DOSE (2X325MG) PO PRN (17:50)
[2022-06-18] MEDS ORDERED: MAG SULF 1GM/100ML (MAG RUN) 1 GM in IV 1 EA IV ONE ×2 (18:00→19:00)
[2022-06-18] MEDS ORDERED: ADME100I2 SC (18:14)
[2022-06-18] MEDS ORDERED: METO5TAB2 PO (18:14)
[2022-06-18] MEDS ORDERED: BASA100I SC (18:17)
[2022-06-18] MEDS ORDERED: HOME MED LIST COMPLETE! XX SCH (18:20)
[2022-06-18 18:35] LABS: RSV AMPLIFICATION NEGATIVE (NEGATIVE)
[2022-06-18] MEDS ORDERED: LEVEMIR (INSULIN DETEMIR) 1 UNITS/0.01ML SC ONE (19:00)
[2022-06-18 19:57] LABS: BASO # 0.1 10^3/uL (0.0-0.2); BASO % 0.4 % (0.0-1.0); EOS % 0.1 % (0.0-3.0); HEMATOCRIT 43.4 % (36.0-47.0); HEMOGLOBIN 14.3 g/dl (12.0-15.5); LYMPH # 2.8 10^3/uL (1.5-5.0); LYMPH % 18.8 % (24.0-44.0); MEAN CORPUSCULAR HEMOGLOBIN 28.9 pg (27.0-33.0); MEAN CORPUSCULAR HGB CONC 32.9 g/dl (32.0-36.5); MEAN CORPUSCULAR VOLUME 87.7 fl (80.0-96.0); MONO # 0.9 10^3/uL (0.0-0.8); MONO % 5.9 % (2.0-8.0); NEUTROPHILS # 11.2 10^3/uL (1.5-8.5); NEUTROPHILS % 74.4 % (36.0-66.0); PLATELET COUNT, AUTOMATED 363 10^3/uL (150-450); RED BLOOD COUNT 4.95 10^6/uL (4.00-5.40)
[2022-06-18 20:23] LABS: BLOOD UREA NITROGEN 17 MG/DL (9-23); CALCIUM LEVEL 8.8 MG/DL (8.5-10.1); CARBON DIOXIDE LEVEL 20 MMOL/L (20-31); CHLORIDE LEVEL 101 MMOL/L (98-107); CREATININE FOR GFR 0.66 MG/DL (0.55-1.30); GLOMERULAR FILTRATION RATE > 60.0 (>58); GLUCOSE, FASTING 259 MG/DL (60-100); POTASSIUM SERUM 4.5 MMOL/L (3.5-5.1); SODIUM LEVEL 136 MMOL/L (136-145)
[2022-06-18] MEDS ORDERED: INSULIN LISPRO (NovoLOG) PER UNIT SC SCH (21:00)
[2022-06-18 22:35] VITALS: BP 158/74
[2022-06-18] MEDS: LABETALOL 100MG/20ML VIAL IV SCH (22:50)
[2022-06-18] MEDS: PANTOPRAZOLE 40MG VIAL IV SCH (23:06)
[2022-06-18] MEDS: SUCRALFATE SUSP 1GM/10ML UD PO SCH (23:06)
[2022-06-19] VITALS: BP 127/62
[2022-06-19 00:37] LABS: BLOOD UREA NITROGEN 11 MG/DL (9-23); CALCIUM LEVEL 8.2 MG/DL (8.5-10.1); CARBON DIOXIDE LEVEL 22 MMOL/L (20-31); CHLORIDE LEVEL 103 MMOL/L (98-107); CREATININE FOR GFR 0.59 MG/DL (0.55-1.30); GLOMERULAR FILTRATION RATE > 60.0 (>58); GLUCOSE, FASTING 192 MG/DL (60-100); POTASSIUM SERUM 3.6 MMOL/L (3.5-5.1); SODIUM LEVEL 136 MMOL/L (136-145)
[2022-06-19] MEDS: LABETALOL 100MG/20ML VIAL IV SCH ×3 (02:00→14:00)
[2022-06-19 04:00] VITALS: BP 118/66
[2022-06-19] MEDS: LR 1,000 ML IV SCH (05:39)
[2022-06-19 05:47] LABS: HEMATOCRIT 38.9 % (36.0-47.0); MEAN CORPUSCULAR HEMOGLOBIN 29.3 pg (27.0-33.0); MEAN CORPUSCULAR HGB CONC 33.4 g/dl (32.0-36.5); MEAN CORPUSCULAR VOLUME 87.8 fl (80.0-96.0); PLATELET COUNT, AUTOMATED 378 10^3/uL (150-450); RED BLOOD COUNT 4.43 10^6/uL (4.00-5.40); WHITE BLOOD COUNT 17.6 10^3/uL (4.0-10.0)
[2022-06-19 06:17] LABS: MAGNESIUM LEVEL 1.7 MG/DL (1.8-2.4)
[2022-06-19 06:26] LABS: BLOOD UREA NITROGEN 11 MG/DL (9-23); CALCIUM LEVEL 8.6 MG/DL (8.5-10.1); CARBON DIOXIDE LEVEL 24 MMOL/L (20-31); CHLORIDE LEVEL 106 MMOL/L (98-107); CREATININE FOR GFR 0.58 MG/DL (0.55-1.30); GLOMERULAR FILTRATION RATE > 60.0 (>58); GLUCOSE, FASTING 32 MG/DL (60-100); POTASSIUM SERUM 3.5 MMOL/L (3.5-5.1); SODIUM LEVEL 140 MMOL/L (136-145)
[2022-06-19] MEDS ORDERED: MAG SULF 1GM/100ML (MAG RUN) 1 GM in IV 1 EA IV ONE (07:00)
[2022-06-19 07:06] LABS: ATYPICAL LYMPH 13 % (0-5); LYMPHOCYTES 18 % (16-44); MONOCYTES 8 % (0-5); NEUTROPHILS 61 % (28-66)
[2022-06-19 07:08] LABS: PLATELET CLUMPS SMALL AMT; PLATELET ESTIMATE NORMAL (NORMAL); SMUDGE CELLS 1+
[2022-06-19 08:00] VITALS: BP 129/79
[2022-06-19] MEDS ORDERED: MOM 30ML SUSPENSION UDC PO PRN (08:15)
[2022-06-19] MEDS ORDERED: SENOKOT S TAB PO PRN (08:15)
[2022-06-19] MEDS: PANTOPRAZOLE 40MG VIAL IV SCH (08:25)
[2022-06-19] MEDS: SUCRALFATE SUSP 1GM/10ML UD PO SCH (08:25)
[2022-06-19] MEDS: INSULIN LISPRO (NovoLOG) PER UNIT SC SCH ×2 (08:26→12:31)
[2022-06-19] MEDS: METOCLOPRAMIDE 5 MG TAB PO SCH ×2 (08:26→12:30)
[2022-06-19] MEDS ORDERED: ENOXAPARIN 40MG/0.4ML SYRINGE (J1650 PER 10MG) SC SCH (09:00)
[2022-06-19] MEDS ORDERED: INFLUENZA QUADRIVALENT PF VACCINE 0.5ML SYRINGE IM.IMMUN ONE (09:00)
[2022-06-19] MEDS ORDERED: FAMOTIDINE 20 MG TAB PO SCH (09:00)
[2022-06-19 12:00] VITALS: BP 158/92
[2022-06-19] MEDS ORDERED: LACTOBACILLUS ACIDOPHILUS CAP (BACID) PO SCH (12:30)
[2022-06-19] MEDS ORDERED: PROB250C PO (13:38)
[2022-06-19 14:00] VITALS: BP 149/86
[2022-06-19] MEDS ORDERED: LEVEMIR (INSULIN DETEMIR) 1 UNITS/0.01ML SC SCH (21:00)
[2022-06-20] MEDS ORDERED: OMEPRAZOLE 20MG CAP PO SCH (09:00)
== END 2022-06-19 15:26 | disposition left against medical advice (07) | DRG 420 ==
LOC: EDBD 15:19 → M ED 15:19 → M ED INP 17:22 → ENRESERV 19:28 → M PCU 22:32
PROVIDERS: ADMIT Internal Medicine; ATTEND Internal Medicine
DX: E10.65 Type 1 diabetes mellitus with hyperglycemia (principal); E10.649 Type 1 diabetes mellitus with hypoglycemia without coma; E10.43 Type 1 diabetes mellitus with diabetic autonomic (poly)neuropathy; K31.84 Gastroparesis; F41.1 Generalized anxiety disorder; J45.909 Unspecified asthma, uncomplicated; F12.10 Cannabis abuse, uncomplicated; K21.9 Gastro-esophageal reflux disease without esophagitis; Z90.49 Acquired absence of other specified parts of digestive tract; E83.42 Hypomagnesemia; Z79.4 Long term (current) use of insulin; Z79.899 Other long term (current) drug therapy; Z88.0 Allergy status to penicillin; Z88.5 Allergy status to narcotic agent; Z88.1 Allergy status to other antibiotic agents; K52.9 Noninfective gastroenteritis and colitis, unspecified; R03.0 Elevated blood-pressure reading, without diagnosis of hypertension

== ENCOUNTER 2023-05-02 10:57 | Inpatient (IN) | payer OTHER ==
[~2023-05-02] VITALS: Ht 154.9 cm; Wt 73.1 kg
[~2023-05-02 10:57] MED LIST changes: +ADME100I2 SC; +BASA100I SC; -GABA-283 PO; +GABA-284 PO; +PROB250C PO
[2023-05-02] MEDS ORDERED: NS 1,000 ML IV ONE (11:25)
[2023-05-02] MEDS ORDERED: METOCLOPRAMIDE INJ 10MG/2ML VIAL IV ONE (11:25)
[2023-05-02] MEDS ORDERED: fentaNYL 100 MCG/2 ML INJECTION IV ONE (11:30)
[2023-05-02 11:47] LABS: BASO # 0.1 10^3/uL (0.0-0.2); BASO % 0.4 % (0.0-1.0); EOS % 0.2 % (0.0-3.0); HEMATOCRIT 43.5 % (36.0-47.0); HEMOGLOBIN 15.1 g/dl (12.0-15.5); LYMPH # 1.2 10^3/uL (1.5-5.0); LYMPH % 5.8 % (24.0-44.0); MEAN CORPUSCULAR HEMOGLOBIN 30.1 pg (27.0-33.0); MEAN CORPUSCULAR HGB CONC 34.7 g/dl (32.0-36.5); MEAN CORPUSCULAR VOLUME 86.8 fl (80.0-96.0); MONO # 0.7 10^3/uL (0.0-0.8); MONO % 3.1 % (2.0-8.0); NEUTROPHILS # 19.2 10^3/uL (1.5-8.5); PLATELET COUNT, AUTOMATED 293 10^3/uL (150-450); RED BLOOD COUNT 5.01 10^6/uL (4.00-5.40); WHITE BLOOD COUNT 21.4 10^3/uL (4.0-10.0)
[2023-05-02 12:12] LABS: ALBUMIN 3.9 G/DL (3.2-5.2); BILIRUBIN,DIRECT 0.3 MG/DL (<0.4); BILIRUBIN,TOTAL 0.9 MG/DL (0.3-1.2); TOTAL PROTEIN 7.3 G/DL (5.7-8.2)
[2023-05-02] MEDS ORDERED: KETOROLAC 30 MG/ML 1ML VIAL IV ONE (12:35)
[2023-05-02] MEDS ORDERED: CIPROFLOXACIN 400 MG in IV 1 EA IV ONE (13:05)
[2023-05-02] MEDS ORDERED: MED REC IN PROGRESS XX SCH (13:10)
[2023-05-02] MEDS ORDERED: HYDROMORPHONE HCL 0.5 MG/ 0.5 ML SYRINGE IV ONE ×3 (13:15→17:40)
[2023-05-02] MEDS ORDERED: D5W/0.45% SODIUM CHLORIDE 1,000 ML IV SCH (13:25)
[2023-05-02] MEDS ORDERED: LevoFLOXacin IV 750 MG in IV 1 EA IV SCH (13:25)
[2023-05-02] MEDS ORDERED: GLUCAGON INJ 1MG VIAL SC PRN (13:40)
[2023-05-02] MEDS ORDERED: DEXTROSE 50% 50ML SYRINGE IV PRN (13:40)
[2023-05-02] MEDS ORDERED: GLUCOSE 4GM CHEW TABLET PO PRN (13:40)
[2023-05-02] MEDS ORDERED: INSULIN LISPRO (NovoLOG) PER UNIT SC STA (13:41)
[2023-05-02] MEDS: NS 1,000 ML IV SCH ×4 (13:51→18:30)
[2023-05-02] MEDS ORDERED: PROMETHAZINE 25MG/ML 1ML VIAL IV ONE (14:00)
[2023-05-02] MEDS ORDERED: NALOXONE INJ 0.4MG/1ML VIAL IV PRN (14:10)
[2023-05-02] MEDS ORDERED: LEVEMIR (INSULIN DETEMIR) 1 UNITS/0.01ML SC ONE (15:00)
[2023-05-02 15:10] VITALS: BP 169/79; TEMP 98.1; O2SAT 100
[2023-05-02] MEDS ORDERED: ROSU20TA61 PO (15:10)
[2023-05-02] MEDS ORDERED: LISI10TA22 PO (15:10)
[2023-05-02] MEDS ORDERED: HYDR-3363 PO (15:10)
[2023-05-02] MEDS ORDERED: HOME MED LIST COMPLETE! XX SCH (15:15)
[2023-05-02 16:07] LABS: ACETONE/KETONE 1.61 MMOL/L (0.02-0.27); BLOOD UREA NITROGEN 13 MG/DL (9-23); CARBON DIOXIDE LEVEL 19 MMOL/L (20-31); CHLORIDE LEVEL 108 MMOL/L (98-107); CREATININE FOR GFR 0.96 MG/DL (0.55-1.30); GLOMERULAR FILTRATION RATE > 60.0 (>58); GLUCOSE, FASTING 319 MG/DL (60-100); POTASSIUM SERUM 3.9 MMOL/L (3.5-5.1); SODIUM LEVEL 138 MMOL/L (136-145)
[2023-05-02 16:37] LABS: HEMOGLOBIN A1c 8.2 % (4.0-6.0)
[2023-05-02] MEDS: cefTRIAXone SOD 1 GM in D5W MINI-BAG PLUS 50 ML IV SCH (17:18)
[2023-05-02] MEDS ORDERED: INSULIN LISPRO (NovoLOG) PER UNIT SC SCH (18:00)
[2023-05-02] MEDS: KETOROLAC 30 MG/ML 1ML VIAL IV SCH (18:13)
[2023-05-02] MEDS: INSULIN LISPRO (NovoLOG) PER UNIT SC SCH (18:13)
[2023-05-02 18:44] LABS: BLOOD UREA NITROGEN 12 MG/DL (9-23); CALCIUM LEVEL 7.9 MG/DL (8.5-10.1); CARBON DIOXIDE LEVEL 20 MMOL/L (20-31); CHLORIDE LEVEL 111 MMOL/L (98-107); CREATININE FOR GFR 0.98 MG/DL (0.55-1.30); GLOMERULAR FILTRATION RATE > 60.0 (>58); GLUCOSE, FASTING 177 MG/DL (60-100); POTASSIUM SERUM 4.1 MMOL/L (3.5-5.1); SODIUM LEVEL 143 MMOL/L (136-145)
[2023-05-02 18:45] LABS: ACETONE/KETONE 0.87 MMOL/L (0.02-0.27); PHOSPHORUS LEVEL 1.7 MG/DL (2.5-4.9)
[2023-05-02] MEDS ORDERED: PROMETHAZINE 25MG/ML 1ML VIAL IV PRN (20:00)
[2023-05-02 20:27] VITALS: BP 127/71; TEMP 98.6; O2SAT 97
[2023-05-03] MEDS ORDERED: LR 1,000 ML IV ONE (00:35)
[2023-05-03] MEDS: KETOROLAC 30 MG/ML 1ML VIAL IV SCH ×4 (00:50→18:35)
[2023-05-03 05:37] VITALS: BP 128/72; TEMP 98.6; O2SAT 98
[2023-05-03] MEDS: INSULIN LISPRO (NovoLOG) PER UNIT SC SCH ×3 (06:00→12:12)
[2023-05-03 07:01] LABS: BLOOD UREA NITROGEN 12 MG/DL (9-23); CALCIUM LEVEL 7.8 MG/DL (8.5-10.1); CARBON DIOXIDE LEVEL 21 MMOL/L (20-31); CHLORIDE LEVEL 112 MMOL/L (98-107); CREATININE FOR GFR 0.85 MG/DL (0.55-1.30); GLOMERULAR FILTRATION RATE > 60.0 (>58); GLUCOSE, FASTING 151 MG/DL (60-100); POTASSIUM SERUM 3.8 MMOL/L (3.5-5.1); SODIUM LEVEL 144 MMOL/L (136-145)
[2023-05-03 07:12] LABS: BASO # 0.1 10^3/uL (0.0-0.2); BASO % 0.3 % (0.0-1.0); EOS # 0.1 10^3/uL (0.0-0.5); EOS % 0.3 % (0.0-3.0); HEMATOCRIT 38.5 % (36.0-47.0); LYMPH # 3.2 10^3/uL (1.5-5.0); LYMPH % 15.8 % (24.0-44.0); MEAN CORPUSCULAR HEMOGLOBIN 30.3 pg (27.0-33.0); MEAN CORPUSCULAR HGB CONC 33.2 g/dl (32.0-36.5); MONO # 1.3 10^3/uL (0.0-0.8); MONO % 6.5 % (2.0-8.0); NEUTROPHILS # 15.3 10^3/uL (1.5-8.5); NEUTROPHILS % 76.7 % (36.0-66.0); PLATELET COUNT, AUTOMATED 218 10^3/uL (150-450); RED BLOOD COUNT 4.23 10^6/uL (4.00-5.40)
[2023-05-03 07:14] LABS: HEMOGLOBIN 12.8 g/dl (12.0-15.5)
[2023-05-03] MEDS ORDERED: DEXTROSE 50% 50ML SYRINGE IV STA (08:01)
[2023-05-03] MEDS ORDERED: D5W 1,000 ML IV SCH (08:05)
[2023-05-03] MEDS ORDERED: NS 1,000 ML IV ONE (08:05)
[2023-05-03] MEDS ORDERED: HYDROMORPHONE HCL 0.5 MG/ 0.5 ML SYRINGE IV ONE (09:35)
[2023-05-03] MEDS ORDERED: SODIUM CHLORIDE 0.45% 1000 ML IV ONE (11:50)
[2023-05-03 14:00] VITALS: BP 135/73; TEMP 98.1; O2SAT 98
[2023-05-03] MEDS ORDERED: LEVEMIR (INSULIN DETEMIR) 1 UNITS/0.01ML SC ONE (14:50)
[2023-05-03] MEDS: cefTRIAXone SOD 1 GM in D5W MINI-BAG PLUS 50 ML IV SCH (15:38)
[2023-05-03] MEDS: LR 1,000 ML IV SCH (15:39)
[2023-05-03] MEDS ORDERED: INSULIN LISPRO (NovoLOG) PER UNIT SC SCH ×3 (17:30→21:00)
[2023-05-03 20:00] VITALS: BP 141/75; TEMP 98.2; O2SAT 99
[2023-05-04] MEDS: KETOROLAC 30 MG/ML 1ML VIAL IV SCH ×2 (00:41→06:31)
[2023-05-04] MEDS: LR 1,000 ML IV SCH ×2 (00:41→11:50)
[2023-05-04 06:00] VITALS: BP 140/90; TEMP 98.6; O2SAT 98
[2023-05-04] MEDS: INSULIN LISPRO (NovoLOG) PER UNIT SC SCH ×2 (06:32→13:17)
[2023-05-04 07:55] LABS: BASO % 0.3 % (0.0-1.0); EOS # 0.1 10^3/uL (0.0-0.5); EOS % 1.6 % (0.0-3.0); HEMATOCRIT 37.9 % (36.0-47.0); HEMOGLOBIN 12.2 g/dl (12.0-15.5); LYMPH # 2.7 10^3/uL (1.5-5.0); LYMPH % 30.9 % (24.0-44.0); MEAN CORPUSCULAR HEMOGLOBIN 29.8 pg (27.0-33.0); MEAN CORPUSCULAR HGB CONC 32.2 g/dl (32.0-36.5); MEAN CORPUSCULAR VOLUME 92.4 fl (80.0-96.0); MONO # 0.5 10^3/uL (0.0-0.8); NEUTROPHILS # 5.3 10^3/uL (1.5-8.5); NEUTROPHILS % 60.7 % (36.0-66.0); PLATELET COUNT, AUTOMATED 195 10^3/uL (150-450); WHITE BLOOD COUNT 8.7 10^3/uL (4.0-10.0)
[2023-05-04 08:25] LABS: BLOOD UREA NITROGEN 7 MG/DL (9-23); CALCIUM LEVEL 7.8 MG/DL (8.5-10.1); CARBON DIOXIDE LEVEL 22 MMOL/L (20-31); CHLORIDE LEVEL 110 MMOL/L (98-107); CREATININE FOR GFR 0.64 MG/DL (0.55-1.30); GLOMERULAR FILTRATION RATE > 60.0 (>58); GLUCOSE, FASTING 182 MG/DL (60-100); POTASSIUM SERUM 3.8 MMOL/L (3.5-5.1); SODIUM LEVEL 142 MMOL/L (136-145)
[2023-05-04] MEDS ORDERED: CIPROFLOXACIN 500MG TABLET PO SCH (16:00)
== END 2023-05-04 13:57 | disposition home or self-care (01) | DRG 465 ==
LOC: M ED 10:57 → EDBD 10:57 → M ED INP 13:21 → M MSPAV 15:11
PROVIDERS: ADMIT General Practice; ATTEND General Practice
DX: N13.2 Hydronephrosis with renal and ureteral calculous obstruction (principal); E87.8 Other disorders of electrolyte and fluid balance, not elsewhere classified; E83.42 Hypomagnesemia; E83.39 Other disorders of phosphorus metabolism; E10.9 Type 1 diabetes mellitus without complications; D72.829 Elevated white blood cell count, unspecified; F41.1 Generalized anxiety disorder; E83.51 Hypocalcemia; J45.909 Unspecified asthma, uncomplicated; F12.10 Cannabis abuse, uncomplicated; K21.9 Gastro-esophageal reflux disease without esophagitis; M54.50 Low back pain, unspecified; G89.29 Other chronic pain; Z90.49 Acquired absence of other specified parts of digestive tract; Z79.4 Long term (current) use of insulin; Z79.899 Other long term (current) drug therapy; Z88.0 Allergy status to penicillin; Z88.1 Allergy status to other antibiotic agents; Z88.2 Allergy status to sulfonamides; Z88.5 Allergy status to narcotic agent; Z91.040 Latex allergy status

== ENCOUNTER 2023-07-03 08:54 | Emergency (ER) | payer MEDICAID, OTHER ==
[~2023-07-03] VITALS: Ht 154.9 cm; Wt 74.1 kg
[~2023-07-03 08:54] MED LIST changes: +HYDR-3363 PO; +ROSU20TA61 PO
[2023-07-03] MEDS ORDERED: NS 1,000 ML IV ONE (09:40)
[2023-07-03] MEDS ORDERED: METOCLOPRAMIDE INJ 10MG/2ML VIAL IV ONE (09:40)
[2023-07-03] MEDS ORDERED: KETOROLAC 30 MG/ML 1ML VIAL IV ONE (09:40)
[2023-07-03 10:15] LABS: BASO % 0.3 % (0.0-1.0); EOS # 0.1 10^3/uL (0.0-0.5); HEMATOCRIT 46.1 % (36.0-47.0); HEMOGLOBIN 15.3 g/dl (12.0-15.5); LYMPH # 3.6 10^3/uL (1.5-5.0); LYMPH % 26.1 % (24.0-44.0); MEAN CORPUSCULAR HGB CONC 33.2 g/dl (32.0-36.5); MEAN CORPUSCULAR VOLUME 87.5 fl (80.0-96.0); MONO # 1.5 10^3/uL (0.0-0.8); MONO % 10.5 % (2.0-8.0); NEUTROPHILS # 8.6 10^3/uL (1.5-8.5); NEUTROPHILS % 61.8 % (36.0-66.0); PLATELET COUNT, AUTOMATED 367 10^3/uL (150-450); RED BLOOD COUNT 5.27 10^6/uL (4.00-5.40); WHITE BLOOD COUNT 13.9 10^3/uL (4.0-10.0)
[2023-07-03 10:28] LABS: ALBUMIN 3.8 G/DL (3.2-5.2); BILIRUBIN,DIRECT 0.2 MG/DL (<0.4); BILIRUBIN,TOTAL 0.4 MG/DL (0.3-1.2); TOTAL PROTEIN 7.3 G/DL (5.7-8.2)
[2023-07-03] MEDS ORDERED: ACETAMINOPHEN *IV* 1,000 MG in IV 1 EA IV ONE (11:50)
[2023-07-03 12:16] LABS: VENOUS BASE EXCESS -1.2 (-2.0-2.0); VENOUS HCO3 22.5 MMOL/L (23.0-27.0); VENOUS O2 SATURATION 81.3 % (60.0-80.0); VENOUS PARTIAL PRESSURE CO2 34.8 mmHg (38.0-50.0); VENOUS PARTIAL PRESSURE O2 45.2 mmHg (30.0-50.0); VENOUS PH 7.428 UNITS (7.330-7.430); VENOUS STANDARD HCO3 23.1 MMOL/L; VENOUS TOTAL CO2 23.5 MMOL/L (24.0-28.0)
[2023-07-03 12:45] LABS: BLOOD UREA NITROGEN 5 MG/DL (9-23); CALCIUM LEVEL 8.6 MG/DL (8.5-10.1); CARBON DIOXIDE LEVEL 25 MMOL/L (20-31); CHLORIDE LEVEL 107 MMOL/L (98-107); CREATININE FOR GFR 0.63 MG/DL (0.55-1.30); GLOMERULAR FILTRATION RATE > 60.0 (>58); GLUCOSE, FASTING 148 MG/DL (60-100); SODIUM LEVEL 140 MMOL/L (136-145)
[2023-07-03] MEDS ORDERED: PERI0.126 PO (13:33)
[2023-07-03 13:39] VITALS: BP 133/78; TEMP 97.6; O2SAT 99
== END 2023-07-03 13:46 | disposition home or self-care (01) ==
LOC: EDBD 08:54 → M ED 08:54
DX: R11.10 Vomiting, unspecified (principal); R10.9 Unspecified abdominal pain; K02.9 Dental caries, unspecified; N20.0 Calculus of kidney; K21.9 Gastro-esophageal reflux disease without esophagitis; Z87.442 Personal history of urinary calculi; E10.43 Type 1 diabetes mellitus with diabetic autonomic (poly)neuropathy; F17.290 Nicotine dependence, other tobacco product, uncomplicated; Z88.0 Allergy status to penicillin; Z88.2 Allergy status to sulfonamides; Z88.1 Allergy status to other antibiotic agents; Z88.5 Allergy status to narcotic agent; Z91.040 Latex allergy status; Z79.899 Other long term (current) drug therapy; Z79.4 Long term (current) use of insulin
CPT/HCPCS: 74176; 80047; 80048; 80076; 81001; 82803; 83690; 84702; 85025; 87040; 96374; 96375; 99284; J0131; J1885; J2765

== ENCOUNTER 2023-09-14 07:51 | Observation (INO) | payer OTHER ==
[~2023-09-14] VITALS: Ht 157.5 cm; Wt 78.9 kg
[~2023-09-14 07:51] MED LIST changes: +PERI0.126 PO
[2023-09-14] MEDS ORDERED: ISOVUE-370 76% 100ML VIAL As Ordered ONE (09:08)
[2023-09-14 09:23] LABS: VENOUS BASE EXCESS -2.6 (-2.0-2.0); VENOUS HCO3 19.2 MMOL/L (23.0-27.0); VENOUS O2 SATURATION 94.4 % (60.0-80.0); VENOUS PARTIAL PRESSURE CO2 26.9 mmHg (38.0-50.0); VENOUS PARTIAL PRESSURE O2 65.9 mmHg (30.0-50.0); VENOUS PH 7.472 UNITS (7.330-7.430); VENOUS STANDARD HCO3 22.2 MMOL/L; VENOUS TOTAL CO2 20.1 MMOL/L (24.0-28.0)
[2023-09-14] MEDS: NS 1,000 ML IV ONE ×2 (09:25→13:47)
[2023-09-14] MEDS: METOCLOPRAMIDE INJ 10MG/2ML VIAL IV ONE (09:26)
[2023-09-14] MEDS: ACETAMINOPHEN *IV* 1,000 MG in IV 1 EA IV ONE (09:26)
[2023-09-14 09:29] LABS: BASO # 0.1 10^3/uL (0.0-0.2); BASO % 0.4 % (0.0-1.0); EOS # 0.1 10^3/uL (0.0-0.5); EOS % 0.4 % (0.0-3.0); HEMATOCRIT 46.1 % (36.0-47.0); LYMPH # 3.1 10^3/uL (1.5-5.0); LYMPH % 17.9 % (24.0-44.0); MEAN CORPUSCULAR HEMOGLOBIN 30.2 pg (27.0-33.0); MEAN CORPUSCULAR HGB CONC 34.7 g/dl (32.0-36.5); MONO # 1.1 10^3/uL (0.0-0.8); MONO % 6.2 % (2.0-8.0); NEUTROPHILS # 13.1 10^3/uL (1.5-8.5); NEUTROPHILS % 74.3 % (36.0-66.0); PLATELET COUNT, AUTOMATED 372 10^3/uL (150-450); WHITE BLOOD COUNT 17.6 10^3/uL (4.0-10.0)
[2023-09-14] MEDS ORDERED: ONDANSETRON 4MG 2ML VIAL IV ONE (09:30)
[2023-09-14] MEDS ORDERED: METOCLOPRAMIDE INJ 10MG/2ML VIAL IV ONE (09:35)
[2023-09-14 09:51] LABS: AMPHETAMINES LEVEL URINE NEGATIVE (NEGATIVE); BARBITURATES URINE NEGATIVE (NEGATIVE); BENZODIAZEPINES URINE NEGATIVE (NEGATIVE); COCAINE METABOLITE URINE NEGATIVE (NEGATIVE); METHADONE URINE NEGATIVE (NEGATIVE); OPIATES URINE NEGATIVE (NEGATIVE); PHENCYCLIDINE URINE NEGATIVE (NEGATIVE)
[2023-09-14 09:53] LABS: LIPASE 25 U/L (12-53)
[2023-09-14 09:55] LABS: ALKALINE PHOSPHATASE 81 U/L (46-116); ALT/SGPT 18 U/L (7.0-40); AST/SGOT 24 U/L (<34); BILIRUBIN,DIRECT 0.2 MG/DL (<0.4); BILIRUBIN,TOTAL 0.8 MG/DL (0.3-1.2); BLOOD UREA NITROGEN 14 MG/DL (9-23); CALCIUM LEVEL 9.6 MG/DL (8.5-10.1); CARBON DIOXIDE LEVEL 18 MMOL/L (20-31); CHLORIDE LEVEL 102 MMOL/L (98-107); CREATININE FOR GFR 0.95 MG/DL (0.55-1.30); GLOMERULAR FILTRATION RATE > 60.0 (>58); GLUCOSE, FASTING 255 MG/DL (60-100); POTASSIUM SERUM 4.2 MMOL/L (3.5-5.1); SODIUM LEVEL 139 MMOL/L (136-145); TOTAL PROTEIN 7.4 G/DL (5.7-8.2)
[2023-09-14 10:00] LABS: CANNABINOIDS URINE POSITIVE (NEGATIVE)
[2023-09-14 10:05] LABS: ACETONE/KETONE 1.52 MMOL/L (0.02-0.27)
[2023-09-14] MEDS ORDERED: GABA600T4 PO (11:33)
[2023-09-14] MEDS ORDERED: D3 H10002 PO (11:33)
[2023-09-14] MEDS ORDERED: INSU100I59 SQ (11:33)
[2023-09-14] MEDS ORDERED: PERI12LIQ PO (11:33)
[2023-09-14] MEDS ORDERED: HOME MED LIST COMPLETE! XX SCH (12:00)
[2023-09-14 12:12] LABS: RSV AMPLIFICATION NEGATIVE (NEGATIVE)
[2023-09-14] MEDS: PANTOPRAZOLE 40MG VIAL IV ONE (13:47)
[2023-09-14] MEDS: LEVEMIR (INSULIN DETEMIR) 1 UNITS/0.01ML SC ONE (13:47)
[2023-09-14] MEDS ORDERED: ACETAMINOPHEN TAB 650MG DOSE (2X325MG) PO PRN (14:15)
[2023-09-14] MEDS ORDERED: GLUCAGON INJ 1MG VIAL SC PRN ×2 (14:15→16:55)
[2023-09-14] MEDS ORDERED: GLUCOSE 4GM CHEW TABLET PO PRN ×2 (14:15→16:55)
[2023-09-14] MEDS ORDERED: DEXTROSE 50% 50ML SYRINGE IV PRN ×2 (14:15→16:55)
[2023-09-14] MEDS: NS 1,000 ML IV SCH (14:58)
[2023-09-14 16:13] VITALS: BP 140/80; TEMP 98.2; O2SAT 97
[2023-09-14] MEDS: GABAPENTIN 300 MG CAP PO SCH (16:20)
[2023-09-14] MEDS: ESCITALOPRAM OXALATE 10 MG TAB (LEXAPRO) PO SCH (16:20)
[2023-09-14] MEDS: ROSUVASTATIN 10 MG TAB (CRESTOR) PO SCH (16:21)
[2023-09-14 16:42] LABS: PROCALCITONIN <0.04 ng/ml
[2023-09-14] MEDS ORDERED: INSULIN LISPRO (NovoLOG) PER UNIT SC SCH ×2 (17:30→21:00)
[2023-09-14] MEDS: ONDANSETRON 4MG 2ML VIAL IV PRN (17:40)
[2023-09-14] MEDS: INSULIN LISPRO (NovoLOG) PER UNIT SC SCH (17:44)
[2023-09-14 19:35] VITALS: BP 108/66; TEMP 98.4; O2SAT 98
[2023-09-14] MEDS ORDERED: LEVEMIR (INSULIN DETEMIR) 1 UNITS/0.01ML SC SCH (21:00)
[2023-09-14] MEDS: LEVEMIR (INSULIN DETEMIR) 1 UNITS/0.01ML SC SCH (21:00)
[2023-09-14] MEDS: ENOXAPARIN 40MG/0.4ML SYRINGE (J1650 PER 10MG) SC SCH (21:23)
[2023-09-15 05:14] VITALS: BP 102/62; TEMP 97.7; O2SAT 98
[2023-09-15 06:53] LABS: BASO % 0.3 % (0.0-1.0); EOS % 0.3 % (0.0-3.0); LYMPH # 2.9 10^3/uL (1.5-5.0); LYMPH % 24.2 % (24.0-44.0); MEAN CORPUSCULAR HEMOGLOBIN 29.1 pg (27.0-33.0); MEAN CORPUSCULAR HGB CONC 32.8 g/dl (32.0-36.5); MEAN CORPUSCULAR VOLUME 88.7 fl (80.0-96.0); MONO # 0.8 10^3/uL (0.0-0.8); MONO % 6.8 % (2.0-8.0); NEUTROPHILS % 68.1 % (36.0-66.0); PLATELET COUNT, AUTOMATED 278 10^3/uL (150-450); RED BLOOD COUNT 4.26 10^6/uL (4.00-5.40); WHITE BLOOD COUNT 11.8 10^3/uL (4.0-10.0)
[2023-09-15 07:04] LABS: HEMATOCRIT 37.8 % (36.0-47.0); HEMOGLOBIN 12.4 g/dl (12.0-15.5)
[2023-09-15 07:23] LABS: BLOOD UREA NITROGEN 6 MG/DL (9-23); CALCIUM LEVEL 7.7 MG/DL (8.5-10.1); CARBON DIOXIDE LEVEL 24 MMOL/L (20-31); CHLORIDE LEVEL 109 MMOL/L (98-107); CREATININE FOR GFR 0.61 MG/DL (0.55-1.30); GLOMERULAR FILTRATION RATE > 60.0 (>58); GLUCOSE, FASTING 151 MG/DL (60-100); MAGNESIUM LEVEL 1.8 MG/DL (1.8-2.4); POTASSIUM SERUM 3.8 MMOL/L (3.5-5.1); SODIUM LEVEL 138 MMOL/L (136-145)
[2023-09-15 08:34] VITALS: BP 142/84; TEMP 97.8; O2SAT 99
[2023-09-15] MEDS: METOCLOPRAMIDE INJ 10MG/2ML VIAL IV ONE (09:09)
[2023-09-15] MEDS: PANTOPRAZOLE 40MG VIAL IV SCH (09:11)
[2023-09-15] MEDS: METOCLOPRAMIDE INJ 10MG/2ML VIAL IV SCH (11:00)
[2023-09-15 13:00] VITALS: BP 136/79; TEMP 97.7; O2SAT 99
[2023-09-15] MEDS ORDERED: DOCUSATE SODIUM 100MG CAPSULE PO PRN (13:45)
[2023-09-15] MEDS ORDERED: MIRALAX *UNIT DOSE* 17GM PACKET PO PRN (13:45)
[2023-09-15] MEDS ORDERED: INSULIN LISPRO (NovoLOG) PER UNIT SC SCH (17:30)
[2023-09-15] MEDS ORDERED: LEVEMIR (INSULIN DETEMIR) 1 UNITS/0.01ML SC ONE (18:30)
[2023-09-15] MEDS: LEVEMIR (INSULIN DETEMIR) 1 UNITS/0.01ML SC ONE (20:30)
[2023-09-15] MEDS: INFLUENZA QUADRIVALENT PF VACCINE 0.5ML SYRINGE IM.IMMUN ONE (20:32)
[2023-09-15 22:00] VITALS: BP 134/75; TEMP 97.9; O2SAT 96
[2023-09-16] MEDS: INSULIN LISPRO (NovoLOG) PER UNIT SC SCH (00:24)
[2023-09-16 05:50] VITALS: BP 127/73; TEMP 97.7; O2SAT 98
[2023-09-16 07:07] LABS: BASO % 0.5 % (0.0-1.0); EOS # 0.1 10^3/uL (0.0-0.5); HEMATOCRIT 37.7 % (36.0-47.0); HEMOGLOBIN 12.5 g/dl (12.0-15.5); LYMPH # 2.2 10^3/uL (1.5-5.0); LYMPH % 27.2 % (24.0-44.0); MEAN CORPUSCULAR HEMOGLOBIN 29.3 pg (27.0-33.0); MEAN CORPUSCULAR HGB CONC 33.2 g/dl (32.0-36.5); MEAN CORPUSCULAR VOLUME 88.3 fl (80.0-96.0); MONO # 0.6 10^3/uL (0.0-0.8); MONO % 7.4 % (2.0-8.0); NEUTROPHILS # 5.2 10^3/uL (1.5-8.5); NEUTROPHILS % 63.5 % (36.0-66.0); PLATELET COUNT, AUTOMATED 270 10^3/uL (150-450); RED BLOOD COUNT 4.27 10^6/uL (4.00-5.40); WHITE BLOOD COUNT 8.2 10^3/uL (4.0-10.0)
[2023-09-16 07:25] LABS: BLOOD UREA NITROGEN 6 MG/DL (9-23); CALCIUM LEVEL 8.1 MG/DL (8.5-10.1); CARBON DIOXIDE LEVEL 24 MMOL/L (20-31); CHLORIDE LEVEL 109 MMOL/L (98-107); CREATININE FOR GFR 0.67 MG/DL (0.55-1.30); GLOMERULAR FILTRATION RATE > 60.0 (>58); GLUCOSE, FASTING 142 MG/DL (60-100); MAGNESIUM LEVEL 1.6 MG/DL (1.8-2.4); SODIUM LEVEL 140 MMOL/L (136-145)
[2023-09-16] MEDS: IPRATROPIUM 0.5MG/ALBUTEROL 2.5MG INH SOL UD 3ML (DUONEB) NEB ONE (08:14)
[2023-09-16 10:23] VITALS: BP 153/79
[2023-09-16] MEDS ORDERED: INSU100I59 SQ (10:25)
[2023-09-16] MEDS ORDERED: PANT40TA29 PO (10:25)
== END 2023-09-16 11:30 | disposition home or self-care (01) ==
LOC: M ED 07:51 → EDBD 07:51 → M ED INP 13:27 → M MS5PR 16:00
PROVIDERS: ADMIT Internal Medicine; ATTEND Internal Medicine
DX: K52.9 Noninfective gastroenteritis and colitis, unspecified (principal); E10.43 Type 1 diabetes mellitus with diabetic autonomic (poly)neuropathy; E10.65 Type 1 diabetes mellitus with hyperglycemia; F41.9 Anxiety disorder, unspecified; E78.5 Hyperlipidemia, unspecified; I10 Essential (primary) hypertension; K21.9 Gastro-esophageal reflux disease without esophagitis; J45.990 Exercise induced bronchospasm; D72.829 Elevated white blood cell count, unspecified; E87.20 Acidosis, unspecified; Z87.442 Personal history of urinary calculi; Z88.0 Allergy status to penicillin; Z88.2 Allergy status to sulfonamides; Z88.5 Allergy status to narcotic agent; Z91.040 Latex allergy status; Z79.899 Other long term (current) drug therapy; Z79.4 Long term (current) use of insulin; Z82.49 Family history of ischemic heart disease and other diseases of the circulatory system; Z83.79 Family history of other diseases of the digestive system; Z23 Encounter for immunization
CPT/HCPCS: 74177; 80047; 80048; 80076; 80307; 81001; 82010; 82803; 83036; 83605; 83690; 83735; 83930; 84145; 85025; 86140; 87040; 87631; 90471; 90686; 93005; 94640; 96365; 96366; 96372; 96375; 96376; 99285; C9113; J0131; J1650; J1815; J2405; J2765; Q9967

== ENCOUNTER 2024-01-03 16:44 | Emergency (ER) | payer OTHER ==
[~2024-01-03] VITALS: Ht 154.9 cm; Wt 85.0 kg
[~2024-01-03 16:44] MED LIST changes: +D3 H10002 PO; +GABA600T4 PO; +INSU100I59 SQ; +PANT40TA29 PO; +PERI12LIQ PO
[2024-01-03 17:59] LABS: VENOUS HCO3 19.3 MMOL/L (23.0-27.0); VENOUS O2 SATURATION 83.7 % (60.0-80.0); VENOUS PARTIAL PRESSURE CO2 28.2 mmHg (38.0-50.0); VENOUS PH 7.453 UNITS (7.330-7.430); VENOUS STANDARD HCO3 21.7 MMOL/L; VENOUS TOTAL CO2 20.2 MMOL/L (24.0-28.0)
[2024-01-03 18:03] LABS: BASO # 0.1 10^3/uL (0.0-0.2); BASO % 0.4 % (0.0-1.0); EOS % 0.3 % (0.0-3.0); HEMATOCRIT 45.1 % (36.0-47.0); HEMOGLOBIN 15.5 g/dl (12.0-15.5); LYMPH # 2.5 10^3/uL (1.5-5.0); LYMPH % 17.9 % (24.0-44.0); MEAN CORPUSCULAR HEMOGLOBIN 29.4 pg (27.0-33.0); MEAN CORPUSCULAR HGB CONC 34.4 g/dl (32.0-36.5); MEAN CORPUSCULAR VOLUME 85.6 fl (80.0-96.0); MONO % 6.8 % (2.0-8.0); NEUTROPHILS # 10.5 10^3/uL (1.5-8.5); NEUTROPHILS % 74.2 % (36.0-66.0); PLATELET COUNT, AUTOMATED 338 10^3/uL (150-450); RED BLOOD COUNT 5.27 10^6/uL (4.00-5.40); WHITE BLOOD COUNT 14.2 10^3/uL (4.0-10.0)
[2024-01-03] MEDS: METOCLOPRAMIDE INJ 10MG/2ML VIAL IV ONE (18:20)
[2024-01-03] MEDS: NS 1,000 ML IV ONE (18:20)
[2024-01-03 18:26] LABS: LIPASE 24 U/L (12-53)
[2024-01-03 18:28] LABS: ACETONE/KETONE 2.18 MMOL/L (0.02-0.27); HEMOGLOBIN A1c 7.8 % (4.0-6.0)
[2024-01-03 18:32] LABS: ALBUMIN 3.8 G/DL (3.2-5.2); ALKALINE PHOSPHATASE 90 U/L (46-116); ALT/SGPT 14 U/L (7.0-40); AST/SGOT 14 U/L (<34); BILIRUBIN,DIRECT 0.3 MG/DL (<0.4); BILIRUBIN,TOTAL 0.9 MG/DL (0.3-1.2); BLOOD UREA NITROGEN 9 MG/DL (9-23); CALCIUM LEVEL 9.4 MG/DL (8.5-10.1); CARBON DIOXIDE LEVEL 21 MMOL/L (20-31); CHLORIDE LEVEL 106 MMOL/L (98-107); CREATININE FOR GFR 0.84 MG/DL (0.55-1.30); GLOMERULAR FILTRATION RATE > 60.0 (>58); GLUCOSE, FASTING 273 MG/DL (60-100); MAGNESIUM LEVEL 1.6 MG/DL (1.8-2.4); SODIUM LEVEL 139 MMOL/L (136-145)
[2024-01-03] MEDS: HALOPERIDOL LACTATE 5MG/ML VIAL IV STA (19:27)
[2024-01-03 19:59] LABS: APPEARANCE, URINE HAZY (CLEAR); BACTERIA, URINE AUTO NEGATIVE (NEGATIVE); BILIRUBIN, URINE AUTO NEGATIVE (NEGATIVE); BLOOD, URINE BLOOD NEGATIVE (NEGATIVE); COLOR, URINE YELLOW (YELLOW); GLUCOSE, URINE (UA) AUTO 3+ mg/dL (NEGATIVE); KETONE, URINE AUTO 2+ mg/dL (NEGATIVE); LEUKOCYTE ESTERASE, URINE AUTO NEGATIVE (NEGATIVE); MUCUS, URINE SMALL (NEGATIVE); NITRITE, URINE AUTO NEGATIVE (NEGATIVE); PROTEIN, URINE AUTO 2+ mg/dL (NEGATIVE); RBC, URINE AUTO 1 /HPF (0-3); SPECIFIC GRAVITY URINE AUTO 1.035 (1.002-1.035); SQUAMOUS EPITHELIAL CELL UR AU 3 /HPF (0-6); WBC, URINE AUTO 3 /HPF (0-3)
[2024-01-03 20:58] VITALS: BP 162/74; TEMP 97; O2SAT 98
== END 2024-01-03 20:48 | disposition home or self-care (01) ==
LOC: M ED 16:44 → EDBD 16:44 → M ED 20:48
DX: K31.84 Gastroparesis (principal); R11.2 Nausea with vomiting, unspecified; I45.10 Unspecified right bundle-branch block; E10.9 Type 1 diabetes mellitus without complications; K21.9 Gastro-esophageal reflux disease without esophagitis; I10 Essential (primary) hypertension; F41.9 Anxiety disorder, unspecified; F12.10 Cannabis abuse, uncomplicated
CPT/HCPCS: 74018; 80048; 80076; 81001; 82010; 82803; 83036; 83690; 83735; 85025; 87486; 87581; 87633; 87798; 93005; 93041; 94760; 96361; 96374; 96375; 99284; J1630; J2765

== ENCOUNTER 2024-02-06 10:14 | Emergency (ER) | payer OTHER ==
[~2024-02-06] VITALS: Ht 154.9 cm; Wt 84.1 kg
[2024-02-06] MEDS: HALOPERIDOL LACTATE 5MG/ML VIAL IV STA (10:42)
[2024-02-06] MEDS: NS 1,000 ML IV ONE ×2 (11:01→12:08)
[2024-02-06 11:13] LABS: LIPASE 25 U/L (12-53)
[2024-02-06 11:15] LABS: ALBUMIN 3.8 G/DL (3.2-5.2); ALKALINE PHOSPHATASE 113 U/L (46-116); ALT/SGPT 18 U/L (7.0-40); AST/SGOT 21 U/L (<34); BILIRUBIN,DIRECT 0.3 MG/DL (<0.4); BILIRUBIN,TOTAL 0.9 MG/DL (0.3-1.2); BLOOD UREA NITROGEN 13 MG/DL (9-23); CALCIUM LEVEL 9.2 MG/DL (8.5-10.1); CARBON DIOXIDE LEVEL 15 MMOL/L (20-31); CHLORIDE LEVEL 101 MMOL/L (98-107); CREATININE FOR GFR 0.89 MG/DL (0.55-1.30); GLOMERULAR FILTRATION RATE > 60.0 (>58); GLUCOSE, FASTING 264 MG/DL (60-100); POTASSIUM SERUM 3.8 MMOL/L (3.5-5.1); SODIUM LEVEL 137 MMOL/L (136-145); TOTAL PROTEIN 7.1 G/DL (5.7-8.2)
[2024-02-06 11:16] LABS: BASO # 0.1 10^3/uL (0.0-0.2); BASO % 0.4 % (0.0-1.0); EOS % 0.2 % (0.0-3.0); HEMATOCRIT 46.1 % (36.0-47.0); HEMOGLOBIN 15.7 g/dl (12.0-15.5); LYMPH # 3.7 10^3/uL (1.5-5.0); LYMPH % 21.3 % (24.0-44.0); MEAN CORPUSCULAR HEMOGLOBIN 29.3 pg (27.0-33.0); MEAN CORPUSCULAR HGB CONC 34.1 g/dl (32.0-36.5); MONO % 5.9 % (2.0-8.0); NEUTROPHILS # 12.3 10^3/uL (1.5-8.5); NEUTROPHILS % 71.6 % (36.0-66.0); PLATELET COUNT, AUTOMATED 378 10^3/uL (150-450); RED BLOOD COUNT 5.36 10^6/uL (4.00-5.40); WHITE BLOOD COUNT 17.2 10^3/uL (4.0-10.0)
[2024-02-06 11:18] LABS: ETHYL ALCOHOL (ETHANOL) 0.005 % (0.000-0.010)
[2024-02-06 11:24] LABS: HCG, SERUM QUALITATIVE NEGATIVE (NEGATIVE)
[2024-02-06 11:27] LABS: VENOUS BASE EXCESS -3.7 (-2.0-2.0); VENOUS HCO3 17.2 MMOL/L (23.0-27.0); VENOUS O2 SATURATION 99.2 % (60.0-80.0); VENOUS PARTIAL PRESSURE CO2 22.9 mmHg (38.0-50.0); VENOUS PARTIAL PRESSURE O2 155.5 mmHg (30.0-50.0); VENOUS PH 7.494 UNITS (7.330-7.430); VENOUS STANDARD HCO3 21.4 MMOL/L; VENOUS TOTAL CO2 17.9 MMOL/L (24.0-28.0)
[2024-02-06 12:10] LABS: AMPHETAMINES LEVEL URINE NEGATIVE (NEGATIVE); BARBITURATES URINE NEGATIVE (NEGATIVE); BENZODIAZEPINES URINE NEGATIVE (NEGATIVE); COCAINE METABOLITE URINE NEGATIVE (NEGATIVE); METHADONE URINE NEGATIVE (NEGATIVE); OPIATES URINE NEGATIVE (NEGATIVE); PHENCYCLIDINE URINE NEGATIVE (NEGATIVE)
[2024-02-06 12:12] LABS: CANNABINOIDS URINE POSITIVE (NEGATIVE)
[2024-02-06] MEDS: PANTOPRAZOLE 40MG VIAL IV ONE (12:59)
[2024-02-06] MEDS: SUCRALFATE SUSP 1GM/10ML UD PO ONE (12:59)
[2024-02-06 13:59] LABS: BLOOD UREA NITROGEN 11 MG/DL (9-23); CARBON DIOXIDE LEVEL 19 MMOL/L (20-31); CHLORIDE LEVEL 109 MMOL/L (98-107); GLOMERULAR FILTRATION RATE > 60.0 (>58); GLUCOSE, FASTING 258 MG/DL (60-100); SODIUM LEVEL 139 MMOL/L (136-145)
[2024-02-06] MEDS: HumuLIN R (REGULAR) INSULIN (NovoLIN R) **100U/ML** PER UNIT SC STA (14:44)
[2024-02-06 15:15] VITALS: BP 133/56; O2SAT 97
[2024-02-06 15:30] VITALS: TEMP 97.8
== END 2024-02-06 15:32 | disposition home or self-care (01) ==
LOC: EDBD 10:14 → M ED 10:14
DX: R11.2 Nausea with vomiting, unspecified (principal); R19.7 Diarrhea, unspecified; E10.65 Type 1 diabetes mellitus with hyperglycemia; K21.9 Gastro-esophageal reflux disease without esophagitis; F41.9 Anxiety disorder, unspecified; Z90.49 Acquired absence of other specified parts of digestive tract; F17.200 Nicotine dependence, unspecified, uncomplicated; Z88.0 Allergy status to penicillin; Z88.2 Allergy status to sulfonamides; Z88.1 Allergy status to other antibiotic agents; Z88.5 Allergy status to narcotic agent; Z91.040 Latex allergy status; Z79.4 Long term (current) use of insulin; Z79.899 Other long term (current) drug therapy
CPT/HCPCS: 80048; 80076; 80307; 82077; 82803; 83690; 84703; 85025; 93005; 96361; 96374; 96375; 99284; J1630; J1815; J2470

== ENCOUNTER 2024-04-18 08:16 | Day surgery (SDC) | payer OTHER ==
[~2024-04-18] VITALS: Ht 154.9 cm; Wt 87.9 kg
[~2024-04-18 08:16] MED LIST changes: +ATOR40TA75 PO; +GABA-1490 PO; -GABA600T4 PO; +HUMA100I5 SC; -ROSU20TA61 PO; +ROSU20TA86 PO; +glargine insulin SC
[2024-04-18] MEDS ORDERED: INSULIN LISPRO (NovoLOG) PER UNIT SC PRN (10:15)
[2024-04-18] MEDS ORDERED: DEXTROSE 50% 50ML SYRINGE IV PRN (10:15)
[2024-04-18] MEDS ORDERED: GLUCAGON INJ 1MG VIAL SC PRN (10:15)
[2024-04-18] MEDS ORDERED: GLUCOSE 4 GM CHEW PO PRN (10:15)
[2024-04-18] MEDS: NS 1,000 ML IV ONE (10:18)
[2024-04-18] MEDS: ONDANSETRON 4MG 2ML VIAL IV ONE (10:33)
[2024-04-18] MEDS ORDERED: LIDOCAINE 2% 100MG/5ML SDV (FOR ANES.) As Ordered ONE (11:21)
[2024-04-18] MEDS ORDERED: propofoL 500 MG/50 ML VIAL As Ordered ONE (11:21)
[2024-04-18] MEDS ORDERED: fentaNYL 100 MCG/2 ML INJECTION As Ordered ONE (11:21)
[2024-04-18] MEDS ORDERED: PHENYLephrine 500MCG 5ML (100MCG/ML) SYRINGE As Ordered ONE (11:28)
[2024-04-18] MEDS ORDERED: propofoL 200 MG/20 ML VIAL As Ordered ONE (11:35)
[2024-04-18] MEDS ORDERED: ONDANSETRON 4MG 2ML VIAL As Ordered ONE (11:42)
[2024-04-18 12:10] VITALS: BP 118/69; TEMP 97.1; O2SAT 99
== END 2024-04-18 12:25 | disposition home or self-care (01) ==
LOC: M OPP 08:16
PROVIDERS: ATTEND Internal Medicine Gastroenterology
DX: K29.50 Unspecified chronic gastritis without bleeding (principal); D12.0 Benign neoplasm of cecum; D12.3 Benign neoplasm of transverse colon; E10.43 Type 1 diabetes mellitus with diabetic autonomic (poly)neuropathy; K64.8 Other hemorrhoids; K31.84 Gastroparesis; K58.9 Irritable bowel syndrome, unspecified; R12 Heartburn; J45.909 Unspecified asthma, uncomplicated; E10.9 Type 1 diabetes mellitus without complications; Z90.49 Acquired absence of other specified parts of digestive tract; Z79.899 Other long term (current) drug therapy; Z79.4 Long term (current) use of insulin; F17.290 Nicotine dependence, other tobacco product, uncomplicated; Z88.2 Allergy status to sulfonamides; Z88.0 Allergy status to penicillin; Z88.5 Allergy status to narcotic agent; Z88.1 Allergy status to other antibiotic agents; Z91.040 Latex allergy status
CPT/HCPCS: 43239; 45380; 45385; 88305; J2371; J2405; J3010